=== PATIENT | male | born 1960 | race Caucasian/White ===

== ENCOUNTER 2018-09-28 19:40 | Emergency (ER) | payer OTHER ==
[~2018-09-28 19:40] MED LIST: THIAMINE 100 MG TAB PO SCH
[2018-09-28] MEDS ORDERED: DIPH,PERTUS(ACELL)TETVAC-LF 0.5 ML VIAL IM ONE (20:11)
[2018-09-28] MEDS ORDERED: LIDOCAINE 1% INJ 10MG/ML (20 ML MDV) SQ STA (20:11)
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
--- NOTE | 2018-09-28 20:56 | XR ---
EXAMINATION TYPE: XR chest 2V DATE OF EXAM: 09/28/2018 COMPARISON: NONE HISTORY: Pain TECHNIQUE: Frontal and lateral views of the chest are obtained. FINDINGS: There is no heart failure nor confluent pneumonic infiltrate. Costophrenic angles are antoni r. Bony thorax is intact. There is no pleural effusion. There is old healed fracture left clavicle. IMPRESSION: No active cardiopulmonary disease. Normal heart.
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
[2018-09-28] MEDS ORDERED: AMOXIC-POT CLAV 875-125MG 1 EACH TAB PO SCH (21:45)
[2018-09-28] MEDS ORDERED: PROPARACAINE 0.5% OPHTH DROPS 15 ML BTL LEFT EYE STA (21:55)
[2018-09-28 22:08] LABS: Basophils % (A) 1 %; Eosinophils # (A) 0.1 k/uL (0-0.7); Eosinophils % (A) 1 %; HGB 14.4 gm/dL (13.0-17.5); Lymphocytes # (A) 2.1 k/uL (1.0-4.8); Lymphocytes % (A) 33 %; MCH 32.1 pg (25.0-35.0); MCHC 32.9 g/dL (31.0-37.0); MCV 97.8 fL (80.0-100.0); Mean Platelet Volume 6.9; Monocytes # (A) 0.4 k/uL (0-1.0); Monocytes % (A) 7 %; Neutrophils # (A) 3.5 k/uL (1.3-7.7); Neutrophils % (A) 55 %; Platelet Count 211 k/uL (150-450); RBC 4.49 m/uL (4.30-5.90); RDW 12.5 % (11.5-15.5); WBC 6.3 k/uL (3.8-10.6)
[2018-09-28 22:09] LABS: Appearance,Urine Clear (Clear); Bilirubin,Urine Negative (Negative); Blood,Urine Negative (Negative); Color,Urine Light Yellow; Glucose,Urine (UA) Negative (Negative); Ketones,Urine Negative (Negative); Leukocyte Esterase,Urine Negative (Negative); Nitrite,Urine Negative (Negative); Protein,Urine Negative (Negative); Specific Gravity,Urine 1.006 (1.001-1.035); Urobilinogen,Urine <2.0 mg/dL (<2.0)
[2018-09-28 22:23] LABS: ALT 40 U/L (21-72); AST 40 U/L (17-59); Albumin 4.5 g/dL (3.5-5.0); Alkaline Phosphatase 98 U/L (38-126); Anion Gap 14 mmol/L; Blood Urea Nitrogen 10 mg/dL (9-20); Carbon Dioxide 21 mmol/L (22-30); Chloride 102 mmol/L (98-107); Glucose 85 mg/dL (74-99); Potassium 4.1 mmol/L (3.5-5.1); Sodium 137 mmol/L (137-145); Total Bilirubin 0.4 mg/dL (0.2-1.3); Total Protein 7.3 g/dL (6.3-8.2)
[2018-09-28 22:32] LABS: Alcohol 229 mg/dL
[2018-09-28] MEDS ORDERED: THIAMINE 100 MG/ML 2 ML VIAL IM STA (23:10)
[2018-09-28] MEDS ORDERED: LORazepam 2 MG/ML INJ IV PRN ×3 (23:10)
[2018-09-28] MEDS ORDERED: MORPHINE SULFATE 4 MG/ML SYRINGE IV STA (23:22)
[2018-09-29 05:56] VITALS: BP 102/56; PULSE 64; RESP 16; TEMP 98.4
== END 2018-09-29 05:56 | disposition home or self-care (01) ==
LOC: EC 19:40
DX: S02.32XA Fracture of orbital floor, left side, initial encounter for closed fracture (principal); F17.200 Nicotine dependence, unspecified, uncomplicated; S02.40FA Zygomatic fracture, left side, initial encounter for closed fracture; Y90.7 Blood alcohol level of 200-239 mg/100 ml; Z23 Encounter for immunization; V18.4XXA Pedal cycle driver injured in noncollision transport accident in traffic accident, initial encounter; Y93.55 Activity, bike riding; Y92.410 Unspecified street and highway as the place of occurrence of the external cause
CPT/HCPCS: 36415; 80053; 85025; 81003; 80320; 71046; 72125; 70450; 70480; 90715; 99285; 12011; 96374; 96372; 90471; J2270; J3411; J2001

== ENCOUNTER 2021-01-31 18:55 | Emergency (ER) | payer OTHER ==
[2021-01-31 19:13] VITALS: TEMP 98.3
[2021-01-31] MEDS ORDERED: BACITRACIN OINT 1 EACH PACKET TOPICAL ONE (19:19)
[2021-01-31] MEDS ORDERED: LIDOCAINE 1% INJ 10MG/ML (20 ML MDV) SQ ONE (19:19)
[2021-01-31] MEDS ORDERED: DIPH,PERTUS(ACELL)TETVAC-LF 0.5 ML VIAL IM ONE (19:19)
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
[2021-01-31 21:53] VITALS: BP 101/77; PULSE 72; RESP 18
== END 2021-01-31 21:53 | disposition home or self-care (01) ==
LOC: EC 18:55
DX: S01.112A Laceration without foreign body of left eyelid and periocular area, initial encounter (principal); S61.411A Laceration without foreign body of right hand, initial encounter; S60.512A Abrasion of left hand, initial encounter; F17.200 Nicotine dependence, unspecified, uncomplicated; F12.90 Cannabis use, unspecified, uncomplicated; W01.0XXA Fall on same level from slipping, tripping and stumbling without subsequent striking against object, initial encounter
CPT/HCPCS: 72125; 70450; 90715; 12011; 12001; 90471; 99284; J2001

== ENCOUNTER 2021-02-16 22:33 | Emergency (ER) | payer OTHER ==
[2021-02-17 02:23] VITALS: RESP 20
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
[2021-02-17 06:30] VITALS: BP 101/62; PULSE 67; TEMP 98.1
== END 2021-02-17 06:45 | disposition home or self-care (01) ==
LOC: EC 22:33
DX: S50.311A Abrasion of right elbow, initial encounter (principal); F10.129 Alcohol abuse with intoxication, unspecified; F17.200 Nicotine dependence, unspecified, uncomplicated; F12.90 Cannabis use, unspecified, uncomplicated; V19.9XXA Pedal cyclist (driver) (passenger) injured in unspecified traffic accident, initial encounter; Y92.524 Gas station as the place of occurrence of the external cause; Y90.9 Presence of alcohol in blood, level not specified
CPT/HCPCS: 99284

== ENCOUNTER 2022-11-27 19:47 | Inpatient (IN) | payer OTHER ==
[2022-11-27 22:04] LABS: Anisocytosis Slight; Basophils % (A) 1 %; Eosinophils # (A) 0.1 k/uL (0-0.7); Eosinophils % (A) 1 %; HCT 27.4 % (39.0-53.0); HGB 8.5 gm/dL (13.0-17.5); Hypochromasia Moderate; Lymphocytes # (A) 2.5 k/uL (1.0-4.8); Lymphocytes % (A) 35 %; MCH 21.5 pg (25.0-35.0); MCHC 31.1 g/dL (31.0-37.0); MCV 69.2 fL (80.0-100.0); Mean Platelet Volume 6.3; Microcytosis Marked; Monocytes # (A) 0.4 k/uL (0-1.0); Monocytes % (A) 6 %; Neutrophils % (A) 56 %; Platelet Count 490 k/uL (150-450); RBC 3.96 m/uL (4.30-5.90); RDW 19.3 % (11.5-15.5); WBC 7.1 k/uL (3.8-10.6)
[2022-11-27 22:15] LABS: ALT 15 U/L (4-49); AST 25 U/L (17-59); African American GFR (CKD) >90 (>60 ml/min/1.73 sqM); Albumin 2.8 g/dL (3.5-5.0); Alkaline Phosphatase 128 U/L (38-126); Anion Gap 8 mmol/L; Calcium 7.8 mg/dL (8.4-10.2); Carbon Dioxide 25 mmol/L (22-30); Chloride 99 mmol/L (98-107); Glucose 107 mg/dL (74-99); Non-African American GFR(CKD) >90 (>60 ml/min/1.73 sqM); Potassium 4.1 mmol/L (3.5-5.1); Sodium 132 mmol/L (137-145); Total Bilirubin 0.2 mg/dL (0.2-1.3)
[2022-11-27 22:16] LABS: Blood Urea Nitrogen 11 mg/dL (9-20)
[2022-11-27 22:43] LABS: Appearance,Urine Clear (Clear); Bilirubin,Urine Negative (Negative); Blood,Urine Negative (Negative); Color,Urine Yellow; Glucose,Urine (UA) Negative (Negative); Ketones,Urine Negative (Negative); Leukocyte Esterase,Urine Negative (Negative); Nitrite,Urine Negative (Negative); PH, Urine 5.5 (5.0-8.0); Protein,Urine Trace (Negative); Specific Gravity,Urine 1.016 (1.001-1.035)
--- NOTE | 2022-11-27 22:59 | XR ---
EXAMINATION TYPE: XR chest 2V DATE OF EXAM: 11/27/2022 COMPARISON: Chest x-ray September 28, 2018 HISTORY: Shortness of breath. TECHNIQUE: Frontal and lateral views of the chest are obtained. FINDINGS: There is no focal air space opacity, pleural effusion, or pneumothorax seen. The cardiac silhouette size remains within normal limits with ectatic descending aorta. Old malunion healed fract ure deformity mid to distal left clavicle redemonstrated. IMPRESSION: No acute cardiopulmonary process. No significant change from prior.
--- NOTE | 2022-11-28 02:27 | ED ---
Extremity Problem HPI - General Chief complaint: Extremity Problem,Nontraumatic Stated complaint: bilateral feet and leg swelling Time Seen by Provider: 11/27/22 22:17 Source: patient Mode of arrival: wheelchair Limitations: no limitations - History of Present Illness Initial comments: 62-year-old male presenting with chief complaint of bilateral lower extremity swelling worsening over the last week. No redness. Patient admits to discomfort in the legs. He admits to some shortness of breath, patient is currently a smoker. No chest pain. No cough, congestion, sore throat, fever, chills, nausea, vomiting, abdominal pain. - Related Data Home Medications Medication Instructions Recorded Confirmed Acetaminophen Tab [Tylenol] 325 mg PO ONCE PRN 02/17/21 02/17/21 Allergies Allergy/AdvReac Type Severity Reaction Status Date / Time No Known Allergies Allergy Verified 02/17/21 06:20 Review of Systems ROS Statement: Those systems with pertinent positive or pertinent negative responses have been documented in the HPI. ROS Other: All systems not noted in ROS Statement are negative. Past Medical History Past Medical History: No Reported History History of Any Multi-Drug Resistant Organisms: None Reported Past Surgical History: No Surgical Hx Reported Past Psychological History: No Psychological Hx Reported Smoking Status: Current every day smoker Past Alcohol Use History: Daily Past Drug Use History: Marijuana General Exam Limitations: no limitations General appearance: alert, in no apparent distress Head exam: Present: atraumatic, normocephalic, normal inspection Eye exam: Present: normal appearance, EOMI. Absent: scleral icterus, periorbital swelling Neck exam: Present: normal inspection, full ROM Respiratory exam: Present: normal lung sounds bilaterally. Absent: respiratory distress, wheezes, rales, rhonchi, stridor Cardiovascular Exam: Present: regular rate, normal rhythm, normal heart sounds. Absent: systolic murmur, diastolic murmur, rubs, gallop, clicks Extremities exam: Present: pedal edema Neurological exam: Present: alert, oriented X3, CN II-XII intact Psychiatric exam: Present: normal affect, normal mood Skin exam: Present: warm, dry, intact, normal color. Absent: rash Course Vital Signs 11/27/22 20:06 Temperature 98.2 F Pulse Rate 71 Respiratory 16 Rate Blood Pressure 107/70 O2 Sat by Pulse 100 Oximetry Medical Decision Making - Medical Decision Making Was pt. sent in by a medical professional or institution (SYDNIE Xie, BAKERY WORKER, urgent care, hospital, or jail...) When possible be specific @ -No Did you speak to anyone other than the patient for history (EMS, parent, family, police, friend...)? What history was obtained from this source @ -No Did you review nursing and triage notes (agree or disagree)? Why? @ -I reviewed and agree with nursing and triage notes Were old charts reviewed (outside hosp., previous admission, EMS record, old EKG, old radiological studies, urgent care reports/EKG's, jail records)? Report findings @ -No old charts were reviewed Differential Diagnosis (chest pain, altered mental status, abdominal pain women, abdominal pain men, vaginal bleeding, weakness, fever, dyspnea, syncope, headache, dizziness, GI bleed, back pain, seizure, CVA, palpatations, mental health, musculoskeletal)? @ -Differential includes CHF, DVT, pedal edema, this is not an all inclusive list EKG interpreted by me (3pts min.). @ -As above X-rays interpreted by me (1pt min.). @ -Chest x-ray shows no acute process CT interpreted by me (1pt min.). @ -None done U/S interpreted by me (1pt. min.). @ -None done What testing was considered but not performed or refused? (CT, X-rays, U/S, labs)? Why? @ -None What meds were considered but not given or refused? Why? @ -None Did you discuss the management of the patient with other professionals (professionals i.e. SYDNIE Xie, BAKERY WORKER, lab, RT, psych nurse, social media marketer, x ray equipment mechanic, teacher, mail officer, case operator)? Give summary @ -Discussed with Dr. Newman who accepted admission Was smoking cessation discussed for >3mins.? @ -No Was critical care preformed (if so, how long)? @ -No Were there social determinants of health that impacted care today? How? ( Homelessness, low income, unemployed, alcoholism, drug addiction, transportation, low edu. Level, literacy, decrease access to med. care, halfway, rehab)? @ -No Was there de-escalation of care discussed even if they declined (Discuss DNR or withdrawal of care, Hospice)? DNR status @ -No What co-morbidities impacted this encounter? (DM, HTN, Smoking, COPD, CAD, Cancer, CVA, ARF, Chemo, Hep., AIDS, mental health diagnosis, sleep apnea, morbid obesity)? @ -Smoking Was patient admitted / discharged? Hospital course, mention meds given and route, prescriptions, significant lab abnormalities, going to OR and other pertinent info. @ -A 62-year-old male presenting with chief complaint of lower extremity edema. 4+ pitting edema bilaterally noted on physical exam. BNP is 1470. Chest x-ray clear. Patient will be admitted for new onset CHF. Patient is agreeable with this plan. I discussed this case my attending Dr. Murphy. Undiagnosed new problem with uncertain prognosis? @ -No Drug Therapy requiring intensive monitoring for toxicity (Heparin, Nitro, Insulin, Cardizem)? @ -No Were any procedures done? @ -No Diagnosis/symptom? @ -New onset CHF Acute, or Chronic, or Acute on Chronic? @ -Acute Uncomplicated (without systemic symptoms) or Complicated (systemic symptoms)? @ -Complicated Side effects of treatment? @ -No Exacerbation, Progression, or Severe Exacerbation? @ -No Poses a threat to life or bodily function? How? (Chest pain, USA, NM, pneumonia, PE, COPD, DKA, ARF, appy, cholecystitis, CVA, Diverticulitis, Homicidal, Suicidal, threat to staff... and all critical care pts) @ -yes - Lab Data Result diagrams: 11/27/22 21:49 11/27/22 21:49 Lab Results 11/27/22 11/27/22 11/27/22 Range/Units 21:49 21:49 21:49 WBC 7.1 (3.8-10.6) k/uL RBC 3.96 L (4.30-5.90) m/uL Hgb 8.5 L (13.0-17.5) gm/dL Hct 27.4 L (39.0-53.0) % MCV 69.2 L (80.0-100.0) fL MCH 21.5 L (25.0-35.0) pg MCHC 31.1 (31.0-37.0) g/dL RDW 19.3 H (11.5-15.5) % Plt Count 490 H (150-450) k/uL MPV 6.3 Neutrophils % 56 % Lymphocytes % 35 % Monocytes % 6 % Eosinophils % 1 % Basophils % 1 % Neutrophils # 4.0 (1.3-7.7) k/uL Lymphocytes # 2.5 (1.0-4.8) k/uL Monocytes # 0.4 (0-1.0) k/uL Eosinophils # 0.1 (0-0.7) k/uL Basophils # 0.0 (0-0.2) k/uL Hypochromasia Moderate Anisocytosis Slight Microcytosis Marked Sodium 132 L (137-145) mmol/L Potassium 4.1 (3.5-5.1) mmol/L Chloride 99 (98-107) mmol/L Carbon Dioxide 25 (22-30) mmol/L Anion Gap 8 mmol/L BUN 11 (9-20) mg/dL Creatinine 0.82 (0.66-1.25) mg/dL Est GFR (CKD-EPI)AfAm >90 (>60 ml/min/1.73 sqM) Est GFR (CKD-EPI)NonAf >90 (>60 ml/min/1.73 sqM) Glucose 107 H (74-99) mg/dL Calcium 7.8 L (8.4-10.2) mg/dL Total Bilirubin 0.2 (0.2-1.3) mg/dL AST 25 (17-59) U/L ALT 15 (4-49) U/L Alkaline Phosphatase 128 H (38-126) U/L NT-Pro-B Natriuret Pep 1470 pg/mL Total Protein 6.0 L (6.3-8.2) g/dL Albumin 2.8 L (3.5-5.0) g/dL Urine Color Urine Appearance (Clear) Urine pH (5.0-8.0) Ur Specific [place] (1.001-1.035) Urine Protein (Negative) Urine Glucose (UA) (Negative) Urine Ketones (Negative) Urine Blood (Negative) Urine Nitrite (Negative) Urine Bilirubin (Negative) Urine Urobilinogen (<2.0) mg/dL Ur Leukocyte Esterase (Negative) 11/27/22 Range/Units 21:50 WBC (3.8-10.6) k/uL RBC (4.30-5.90) m/uL Hgb (13.0-17.5) gm/dL Hct (39.0-53.0) % MCV (80.0-100.0) fL MCH (25.0-35.0) pg MCHC (31.0-37.0) g/dL RDW (11.5-15.5) % Plt Count (150-450) k/uL MPV Neutrophils % % Lymphocytes % % Monocytes % % Eosinophils % % Basophils % % Neutrophils # (1.3-7.7) k/uL Lymphocytes # (1.0-4.8) k/uL Monocytes # (0-1.0) k/uL Eosinophils # (0-0.7) k/uL Basophils # (0-0.2) k/uL Hypochromasia Anisocytosis Microcytosis Sodium (137-145) mmol/L Potassium (3.5-5.1) mmol/L Chloride (98-107) mmol/L Carbon Dioxide (22-30) mmol/L Anion Gap mmol/L BUN (9-20) mg/dL Creatinine (0.66-1.25) mg/dL Est GFR (CKD-EPI)AfAm (>60 ml/min/1.73 sqM) Est GFR (CKD-EPI)NonAf (>60 ml/min/1.73 sqM) Glucose (74-99) mg/dL Calcium (8.4-10.2) mg/dL Total Bilirubin (0.2-1.3) mg/dL AST (17-59) U/L ALT (4-49) U/L Alkaline Phosphatase (38-126) U/L NT-Pro-B Natriuret Pep pg/mL Total Protein (6.3-8.2) g/dL Albumin (3.5-5.0) g/dL Urine Color Yellow Urine Appearance Clear (Clear) Urine pH 5.5 (5.0-8.0) Ur Specific [place] 1.016 (1.001-1.035) Urine Protein Trace H (Negative) Urine Glucose (UA) Negative (Negative) Urine Ketones Negative (Negative) Urine Blood Negative (Negative) Urine Nitrite Negative (Negative) Urine Bilirubin Negative (Negative) Urine Urobilinogen 2.0 (<2.0) mg/dL Ur Leukocyte Esterase Negative (Negative) Disposition Clinical Impression: CHF (congestive heart failure) Disposition: ADMITTED IP TO THIS [facility] Condition: Fair Referrals: None,Stated [Primary Care Provider] - 1-2 days Time of Disposition: 02:27
[2022-11-28] MEDS ORDERED: FUROSEMIDE 10 MG/ML 4 ML VIAL IV STA (02:48)
[2022-11-28] MEDS ORDERED: NALOXONE 0.4 MG/ML 1 ML VIAL IV PRN (04:20)
--- NOTE | 2022-11-28 07:47 | P.HPIM ---
History of Present Illness H&P Date: 11/28/22 (patient seen at 1015) Patient is a 62-year-old male with no known past medical history who presented to the emergency department with complaints of lower extremity swelling. On arr ival to the ER his vital signs were within normal limits. Laboratory analysis was remarkable for hemoglobin 8.5, hematocrit 27.4, platelets 490, sodium 132, glucose 107, calcium 7.8, alkaline phosphatase 128, total bilirubin 6, albumin 2.8. BNP was elevated at 1470. Chest x-ray showed no acute process. In the ER he was given a dose of Lasix. Arrangements were made for admission. Patient seen and examined at bedside. He reports that he has had lower external be edema for the last 1-2 weeks that has been increasing in nature. He adamantly denies any chest pain, shortness of breath, change in his chronic cough, difficulty with urination. He denies any nausea, vomiting, or diarrhea. He does state that he has been drinking 3, 20 ounce beers daily he is unsure the last day he has gone without drinking. He has never had any signs of all, withdrawn the past. He has no known heart issues. He does report that sometimes he gets inebriated from his 3 beers and has difficulty with falling. Vital signs reviewed General: nontoxic, no distress, appears at stated age Derm: warm, dry Eyes: EOMI, no lid lag, anicteric sclera, pupils equal round reactive to light ENT: Nose and ears atraumatic, no thrush, no pharyngeal erythema, poor dentition Cardiovascular: S1S2 reg, no murmur, positive posterior tibial pulse bilateral, 2+ b/l LE edema Lungs: clear to auscultation bilateral, no rhonchi, no rales, no wheeze, no accessory muscle use Abdominal: soft, nontender to palpation, no guarding, no appreciable organomegaly, normal bowel sounds Ext: no gross muscle atrophy, no contractures Neuro: CN II-XII grossly intact, light touch intact all 4 extremities, finger to nose within normal limits, Psych: Alert, oriented, appropriate affect Assessment/Plan: B/l LE edema - converns for CHF vs cirrhosis vs other - check Liver US and echo - Lasix 40 mg IVP twice daily - strict I and O daily weights - await testing prior to starting BB or JANET/ARB - Will nee BMP and MG in am with IV diuresis Hypervolemic hyponatremia - caonitnue with lasix - monitor sodium Anemia thrombocytosis - follow CBC - Check iron studis Niconitne dependency - nicoitne replacement - cessation Alcohol Dependency - CIWA with ativan - Thiamine 100 gm daily and folic acid 1 mg daily. Imaging: Chest x-ray-as reviewed by myself in 11/28/22 shows no acute process As per HPI Data Review: As per HPI The patient is admitted with an anticipated greater than 2 midnight stay for evaluation of lower extremity edema Surrogate decision-maker: CODE STATUS:full DVT prophylaxis: SCDs Anticipated discharge date: Pending Clinical Course Anticipated discharge place: Pending Clinical Course This dictation was prepared using [employer] voice recognition software. Selena claros every attempt is made to correct errors during dictation some may still exist. Past Medical History Past Medical History: No Reported History History of Any Multi-Drug Resistant Organisms: None Reported Additional Past Surgical History / Comment(s): right leg surgery for broken bone Past Psychological History: No Psychological Hx Reported Smoking Status: Current every day smoker Past Alcohol Use History: Daily Past Drug Use History: Marijuana Medications and Allergies Home Medications Medication Instructions Recorded Confirmed Type No Known Home Medications 11/28/22 11/28/22 History Allergies Allergy/AdvReac Type Severity Reaction Status Date / Time No Known Allergies Allergy Verified 11/28/22 06:33 Physical Exam Osteopathic Statement: *. No significant issues noted on an osteopathic structural exam other than those noted in the History and Physical/Consult. Vitals: Vital Signs Temp Pulse Resp BP Pulse Ox 11/28/22 06:00 62 16 124/88 96 11/28/22 03:25 68 16 116/80 100 11/27/22 20:06 98.2 F 71 16 107/70 100 Intake and Output 11/27/22 11/28/22 11/28/22 22:59 06:59 14:59 Other: Weight 72.575 kg Results CBC & Chem 7: 11/28/22 07:56 11/28/22 07:56 Labs: Abnormal Lab Results - Last 24 Hours (Table) 11/27/22 11/27/22 11/27/22 Range/Units 21:49 21:49 21:50 RBC 3.96 L (4.30-5.90) m/uL Hgb 8.5 L (13.0-17.5) gm/dL Hct 27.4 L (39.0-53.0) % MCV 69.2 L (80.0-100.0) fL MCH 21.5 L (25.0-35.0) pg RDW 19.3 H (11.5-15.5) % Plt Count 490 H (150-450) k/uL Sodium 132 L (137-145) mmol/L Glucose 107 H (74-99) mg/dL Calcium 7.8 L (8.4-10.2) mg/dL Alkaline Phosphatase 128 H (38-126) U/L Total Protein 6.0 L (6.3-8.2) g/dL Albumin 2.8 L (3.5-5.0) g/dL Urine Protein Trace H (Negative)
[2022-11-28 08:20] LABS: Anisocytosis Slight; HCT 27.6 % (39.0-53.0); HGB 8.5 gm/dL (13.0-17.5); Hypochromasia Moderate; MCH 21.6 pg (25.0-35.0); MCHC 30.7 g/dL (31.0-37.0); MCV 70.3 fL (80.0-100.0); Mean Platelet Volume 6.5; Microcytosis Marked; Platelet Count 469 k/uL (150-450); RBC 3.92 m/uL (4.30-5.90); RDW 19.3 % (11.5-15.5); WBC 7.5 k/uL (3.8-10.6)
[2022-11-28] MEDS: FUROSEMIDE 10 MG/ML 4 ML VIAL IV SCH ×2 (08:26→20:51)
[2022-11-28 08:43] LABS: African American GFR (CKD) >90 (>60 ml/min/1.73 sqM); Anion Gap 3 mmol/L; Blood Urea Nitrogen 14 mg/dL (9-20); Calcium 7.3 mg/dL (8.4-10.2); Carbon Dioxide 32 mmol/L (22-30); Chloride 96 mmol/L (98-107); Glucose 89 mg/dL (74-99); Magnesium 2.2 mg/dL (1.6-2.3); Non-African American GFR(CKD) >90 (>60 ml/min/1.73 sqM); Sodium 131 mmol/L (137-145)
[2022-11-28] MEDS ORDERED: LORazepam 2 MG/ML INJ IV PRN ×3 (10:04)
[2022-11-28] MEDS ORDERED: THIAMINE 100 MG/ML 2 ML VIAL IM STA (10:04)
--- NOTE | 2022-11-28 10:14 | CONS ---
CONSULTATION CHIEF COMPLAINT: New onset congestive heart failure. HISTORY OF PRESENT ILLNESS: Franci is a 62-year-old gentleman with no significant past medical history, who presented to hospital with bilateral leg edema that has been getting progressively worse over the last several weeks. He denies chest pain or difficulty in breathing. He is anemic with a hemoglobin of 8.5. He is hypoalbuminemic at 2.8 and BNP is elevated. His EKG shows sinus rhythm. Chest x-ray does not reveal any pulmonary congestion. PAST MEDICAL HISTORY: Negative for hypertension, diabetes, dyslipidemia. MEDICATIONS: None. ALLERGIES: None. FAMILY HISTORY: Negative for premature coronary artery disease. SOCIAL HISTORY: Negative for smoking, EtOH abuse, or drug abuse. REVIEW OF SYSTEMS: HEENT: Unremarkable. CARDIAC: As described above. RESPIRATORY: Negative. GI: Negative. GENITOURINARY: Negative. ALLERGY: Negative. MUSCULOSKELETAL: Negative for arthritis. PSYCHOSOCIAL: Negative. DERM: Negative. CONSTITUTIONAL: Negative. ONCOLOGICAL: Negative. INSTRUCTIONAL SUPERVISOR: Negative. Rest of the system review is not relevant. PHYSICAL EXAMINATION: VITAL SIGNS: Afebrile. Heart rate is 60 beats per minute, blood pressure is 124/88, respiratory rate is 18, O2 saturation is 96% on room air. NECK: There is no jugular venous distention. Carotid upstroke is normal. There is no bruit. CHEST: Reveals good air entry bilaterally. HEART: Reveals first and second heart sounds. No gallop. No murmur. No rub. ABDOMEN: Soft, nontender. EXTREMITIES: Did not reveal any edema. Peripheral pulses are felt. LABORATORY DATA: Labs showed that the hemoglobin is 8.5. Potassium is 4, creatinine 0.8. ASSESSMENT: 1. Bilateral leg edema, probably related to new onset congestive heart failure. 2. History of ETOH abuse. PLAN: I am going to obtain a 2D echo to evaluate the LV function. The leg edema could either be due to new onset heart failure or due to a combination of underlying problems including low albumin, anemia, ETOH abuse, and possible underlying liver disease. I will leave him on IV Lasix for another day and further optimize the medications tomorrow. MMODL / IJN: [id number] /
--- NOTE | 2022-11-28 11:34 | CA ---
Transthoracic Echo Report Name: Franci Erickson Age: 62 Gender: M : 1960 Exam Date: 11/28/2022 09:18 Exam Location: [place] [facility] Ht (in): 72 Wt (lb): 160 Ordering Physician: Lesa Goncalves DO Attending/Referring Phys: [id number], Ivanna Multimedia Manager [facility] Procedure CPT: Indications: Heart failure Cardiac Hx: Technical Quality: Fair Contrast 1: Total Dose (mL): Contrast 2: Total Dose (mL): MEASUREMENTS (Male / Female) Normal Values 2D ECHO LV Diastolic Diameter PLAX 4.0 cm 4.2 - 5.9 / 3.9 - 5.3 cm LV Systolic Diameter PLAX 2.6 cm IVS Diastolic Thickness 0.9 cm 0.6 - 1.0 / 0.6 - 0.9 cm LVPW Diastolic Thickness 0.9 cm 0.6 - 1.0 / 0.6 - 0.9 cm LV Relative Wall Thickness 0.4 M-MODE Aortic Root Diameter MM 3.8 cm LA Systolic Diameter MM 3.4 cm LA Ao Ratio MM 0.9 AV Cusp Separation MM 2.3 cm DOPPLER AV Peak Velocity 172.8 cm/s AV Peak Gradient 11.9 mmHg AV Mean Velocity 111.1 cm/s AV Mean Gradient 5.8 mmHg AV Velocity Time Integral 28.8 cm LVOT Peak Velocity 168.0 cm/s LVOT Peak Gradient 11.3 mmHg LVOT Velocity Time Integral 31.5 cm MR Peak Velocity 517.6 cm/s MR Peak Gradient 107.2 mmHg Mitral E Point Velocity 70.9 cm/s Mitral A Point Velocity 62.4 cm/s Mitral E to A Ratio 1.1 MV Deceleration Time 314.3 ms LV E' Lateral Velocity 13.2 cm/s Mitral E to LV E' Lateral Ratio 5.4 LV E' Septal Velocity 7.9 cm/s Mitral E to LV E' Septal Ratio 9.0 Right Atrial Pressure 3.0 mmHg FINDINGS Left Ventricle Normal Left ventricular size, wall thickness, systolic function with no obvious regional wall motion abnormalities. Left ventricular ejection fraction is estimated at 55-60%. Right Ventricle Mild right ventricular dilatation. Right Atrium Mild right atrial dilatation. Left Atrium Normal left atrial size. Mitral Valve Structurally normal mitral valve. Moderate mitral regurgitation. Aortic Valve Trileaflet aortic valve. No aortic valve stenosis or regurgitation. Tricuspid Valve Structurally normal tricuspid valve. No tricuspid regurgitation. Pulmonic Valve Pulmonic valve not well visualized. Pericardium Small pericardial effusion. Aorta Mild aortic dilatation at the level of the sinuses of valsalva (root). CONCLUSIONS Normal LV size and systolic function mild concentric LVH noted. Moderate mitral regurgitation noted eccentric. Mild enlargement of aortic root. No significant pulmonary hypertension. Small pericardial effusion Previewed by: Dr. Willian Obregon MD (Electronically Signed) Final Date: 28 November 2022 11:33
[2022-11-28 11:37] LABS: % Iron Saturation 8.66 (15.00-50.00); Ferritin 43.8 ng/mL (22.0-322.0)
--- NOTE | 2022-11-28 14:44 | US ---
EXAMINATION TYPE: US liver DATE OF EXAM: 11/28/2022 COMPARISON: NONE CLINICAL INDICATION: Male, 62 years old with history of cirrhosis; cirrhosis TECHNIQUE: Multiple sonographic images of the right upper quadrant are obtained. FINDINGS: EXAM MEASUREMENTS: Liver Length: 18.2 cm Gallbladder Wall: 0.3 cm CBD: 0.4 cm Right Kidney: 11.2 x 4.4 x 5.1 cm Pancreas: Tail obscured by overlying bowel gas Liver: appears wnl Gallbladder: possible small amount of sludge Evidence for sonographic Amador's sign: no CBD: wnl Right Kidney: no evidence of hydronephrosis The visualized portions of the pancreas unremarkable. The tail is obscured by overlying bowel gas. Li justine appears within normal limits without focal lesion. No surface nodularity identified. Gallbladder demonstrates trace amount of sludge without evidence of shadowing calculi, wall thickening, or perich olecystic fluid. Per director advanced, negative sonographic Amador sign. Common bile duct is within normal limits. Right kidney is unremarkable without evidence of hydronephrosis, shadowing calculi, or solid mass. IMPRESSION: 1. Gallbladder sludge without evidence for acute cholecystitis. 2. Normal ultrasound appearance of the liver without focal lesion.
[2022-11-28] MEDS: NICOTINE 21MG/24HR PATCH TRANSDERM SCH (17:54)
[2022-11-28] MEDS ORDERED: MELATONIN 3 MG TABLET PO PRN (17:59)
[2022-11-28] MEDS: ACETAMINOPHEN TAB 325 MG TAB PO PRN (18:19)
[2022-11-28] MEDS: IOPAMIDOL CONTRAST (ORAL USE) VIAL PO PRN ×2 (20:51→21:58)
--- NOTE | 2022-11-28 22:45 | CT ---
EXAMINATION TYPE: CT ChestAbdPelvis w con DATE OF EXAM: 11/28/2022 COMPARISON: none HISTORY: LE edema, concern for pelvic outlet obstruction CT DLP: 768.4 mGycm CONTRAST: CT scan of the chest, abdomen and pelvis is performed with Oral Contrast and with IV Contrast, patien t injected with 100 mL of Isovue 300. CT Chest: LUNGS: The lungs are clear and free of infiltrate or atelectasis. No pulmonary nodule or mass is det ected. No pleural effusion or CT evidence of interstitial lung disease. MEDIASTINUM: Thoracic aorta is of normal caliber. The heart is not enlarged. No evidence for media stinal mass or adenopathy. HILAR STRUCTURES: No evidence for mass. No hilar adenopathy is appreciated. OTHER: No significant abnormality. CONTRAST CT ABDOMEN AND PELVIS FINDINGS: LIVER/GB: No calcified gallstones. No space occupying hepatic lesion. Biliary tree is of normal ca liber. PANCREAS: No inflammation. No distinct mass. SPLEEN: No splenic enlargement. No lesion seen. ADRENALS: No nodule. No thickening. KIDNEYS/BLADDER: No hydronephrosis. No nephrolithiasis. No distinct renal mass. There is urinary b ladder wall thickening which may reflect cystitis. BOWEL: There is a large cecal mass noted extending into the ascending colon. The mass measures at taina st 10 cm in length. There is pericolonic stranding as well as a adenopathy measuring up to 1.2 cm. Sm all bowel is of normal caliber. Moderate fecal stasis throughout the remainder of the colon. GENITAL ORGANS: No gross abnormality. LYMPH NODES: No greater than 1cm abdominal or pelvic lymph nodes are appreciated. AORTA: No significant abnormality. OSSEOUS STRUCTURES: Degenerative changes of the lower lumbar spine. Grade 1 retrolisthesis L4 and L5 of grade 1 anterolisthesis L5 on S1 OTHER: No significant additional abnormality is seen. IMPRESSION: 1. Large cecal and ascending colonic mass felt to reflect malignancy until proven otherwise. There is surrounding stranding and fluid as well as adenopathy indicating regional spread. 2. No definite evidence for metastatic disease to the liver or the chest. 3. Urinary bladder cystitis
[2022-11-29 07:58] LABS: Anisocytosis Slight; HCT 26.6 % (39.0-53.0); HGB 8.2 gm/dL (13.0-17.5); Hypochromasia Moderate; MCH 21.8 pg (25.0-35.0); MCHC 30.9 g/dL (31.0-37.0); MCV 70.7 fL (80.0-100.0); Mean Platelet Volume 6.6; Microcytosis Marked; Platelet Count 481 k/uL (150-450); RBC 3.76 m/uL (4.30-5.90); RDW 19.4 % (11.5-15.5); WBC 8.3 k/uL (3.8-10.6)
[2022-11-29 08:16] LABS: African American GFR (CKD) >90 (>60 ml/min/1.73 sqM); Anion Gap 4 mmol/L; Blood Urea Nitrogen 12 mg/dL (9-20); Calcium 7.6 mg/dL (8.4-10.2); Carbon Dioxide 30 mmol/L (22-30); Chloride 94 mmol/L (98-107); Glucose 91 mg/dL (74-99); Non-African American GFR(CKD) >90 (>60 ml/min/1.73 sqM); Potassium 4.3 mmol/L (3.5-5.1); Sodium 128 mmol/L (137-145)
[2022-11-29] MEDS: FUROSEMIDE 10 MG/ML 4 ML VIAL IV SCH (09:53)
[2022-11-29] MEDS: IBUPROFEN 400 MG TAB PO PRN (10:04)
[2022-11-29] MEDS: FOLIC ACID 1 MG TAB PO SCH (10:04)
[2022-11-29] MEDS: ONDANSETRON 4 MG/2 ML VIAL IVP PRN (10:04)
[2022-11-29] MEDS: THIAMINE 100 MG TAB PO SCH (10:05)
[2022-11-29] MEDS: NICOTINE 21MG/24HR PATCH TRANSDERM SCH (10:05)
[2022-11-29] MEDS ORDERED: PEG 3350 (236 GM/BTL) + LYTES 4,000 ML BOTTLE PO ONE ×2 (11:00→17:33)
[2022-11-29] MEDS ORDERED: LACTULOSE 20 GM/30 ML CUP PO ONE (11:15)
--- NOTE | 2022-11-29 11:44 | P.PN ---
Subjective Progress Note Date: 11/29/22 HISTORY OF PRESENT ILLNESS: this is a 62-year-old male who presented to the hospital yesterday secondary to lower extremity edema. Patient was placed on IV Lasix. Patient examined this morning at the bedside. Patient denies chest pain or pressure. He denies shortness of breath. His lower extremity edema has resolved. Echocardiogram completed revealing ejection fraction 55-60%. Patient is hypotensive this morning and was started on IV fluids per primary medicine. Patient underwent CT chest abdomen and pelvis revealing large cecal and ascending colonic mass felt to reflect malignancy. PHYSICAL EXAM: VITAL SIGNS: Reviewed. GENERAL: Well-developed in no acute distress. NECK: Supple. No JVD or thyromegaly LUNGS: Respirations even and unlabored. Lungs essentially clear to auscultation bilaterally. HEART: Regular rate and rhythm. S1 and S2 heard. EXTREMITIES: Normal range of motion. No clubbing or cyanosis. Peripheral pulses intact. No lower extremity edema ASSESSMENT: Lower extremity edema, may be secondary to alcohol use and/or low albumin levels, CHF less likely History of alcohol abuse Large cecal and ascending colonic mass Hypotension PLAN: Discontinue IV lasix Patient started on IV fluids per primary medicine General surgery has been consulted and patient is scheduled for right colectomy tomorrow with Dr. Beck Further recommendations pending patient course Nurse practitioner note has been reviewed by physician. Signing provider agrees with the documented findings, assessment, and plan of care. Objective - Vital Signs Vital signs: Vital Signs Temp 99.1 F 11/29/22 08:20 Pulse 74 11/29/22 08:20 Resp 16 11/29/22 08:20 BP 95/64 11/29/22 10:07 Pulse Ox 99 11/29/22 08:20 FiO2 Intake & Output 11/28/22 11/29/22 11/29/22 18:59 06:59 18:59 Intake Total 180 180 Output Total 900 1500 Balance -720 -1500 180 Weight 72.575 kg 59.2 kg Intake: Oral 180 180 Output: Urine 900 1500 Other: Voiding Method Toilet # Voids 1 5 - Labs CBC & Chem 7: 11/29/22 07:31 11/29/22 07:31 Labs: Abnormal Lab Results - Last 24 Hours (Table) 11/29/22 11/29/22 Range/Units 07:31 07:31 RBC 3.76 L (4.30-5.90) m/uL Hgb 8.2 L (13.0-17.5) gm/dL Hct 26.6 L (39.0-53.0) % MCV 70.7 L (80.0-100.0) fL MCH 21.8 L (25.0-35.0) pg MCHC 30.9 L (31.0-37.0) g/dL RDW 19.4 H (11.5-15.5) % Plt Count 481 H (150-450) k/uL Sodium 128 L (137-145) mmol/L Chloride 94 L (98-107) mmol/L Calcium 7.6 L (8.4-10.2) mg/dL
--- NOTE | 2022-11-29 13:08 | P.GSCN ---
History of Present Illness Consult date: 11/29/22 History of present illness: CHIEF COMPLAINT: Bilateral lower extremity swelling HISTORY OF PRESENT ILLNESS: This is a 62-year-old male who presented to the hospital for complaints of bilateral lower extremity swelling. There initially concerns for possible CHF exacerbation and was started on IV Lasix. He has been seen by cardiology. He's had decrease lower extremity swelling and IV Lasix was discontinued. He did become hypotensive and has been restarted on IV fluids. Surgical consult has been placed due to abnormality noted on CAT scan with large cecal and ascending colon mass felt to reflect malignancy. Oncology is also following. Patient does report pain across the middle of the abdomen occasionally that has been ongoing for a while. He reports after passing flatus the pain is better. He denies any nausea or vomiting. He denies any blood in the stools or melanotic stools. He does report that his stools appear to float which is new. He denies any weight loss. Denies any family history of colon cancer. Patient is a smoker and drinks alcohol daily. He is also anemic with a hemoglobin of 8.2. PAST MEDICAL HISTORY: none PAST SURGICAL HISTORY: right leg surgery for broken bone MEDICATIONS: See below ALLERGIES: See below SOCIAL HISTORY: No illicit drug use. Daily EtOH use, nicotine dependence REVIEW OF SYSTEMS: CONSTITUTIONAL: Denies fever or chills. HEENT: Denies blurred vision, vision changes, or eye pain. Denies hemoptysis CARDIOVASCULAR: Denies chest pain or pressure. RESPIRATORY: No shortness of breath. GASTROINTESTINAL: See HPI for pertinent findings HEMATOLOGIC: Denies bleeding disorders. GENITOURINARY: Denies any blood in urine or increased urinary frequency. SKIN: Denies pruitis. Denies rash. PHYSICAL EXAM: VITAL SIGNS: Reviewed GENERAL: Well-developed in no acute distress. HEENT: No sclera icterus. Extraocular movements grossly intact. Moist buccal mucosa. Head is atraumatic, normocephalic. No nasal drainage. ABDOMEN: Soft. Nondistended. Tenderness with palpation of the right side of the abdomen NEUROLOGIC: Alert and oriented. Cranial nerves II through XII grossly intact. LABORATORY DATA: WBC is 8.3 Hgb 8.2 platelets 481 Sodium 128 potassium 4.3 creatinine 0.70 Total iron is low at 20 AST 25 ALT 15 alk phos 128 Troponin negative Albumin 2.8 Urinalysis negative for infection IMAGING: Computed tomography scan chest abdomen and pelvis reveals a large cecal and ascending colonic mass felt to reflect malignancy until proven otherwise. There is surrounding stranding and fluid as well as adenopathy indicating regional spread. No definite evidence for metastatic disease to the liver or the chest. Urinary bladder cystitis. Echo with EF 55-60%. Moderate mitral regurgitation. No significant Pulmonary hypertension. Small pericardial effusion. Liver ultrasound with gallbladder sludge without evidence for acute cholecystitis. Normal ultrasound appearance of the liver without focal lesion Chest x-ray no acute cardiopulmonary process. No significant change from prior. ASSESSMENT: 1. Large cecal and ascending colonic mass felt to reflect malignancy until proven otherwise noted on computed tomography scan 2. Bilateral lower extremity edema. Evaluated by cardiology. Currently off lasix 3. History of daily alcohol use PLAN: -Patient scheduled for right colectomy tomorrow, 11/30/[address] Beck -Nothing by mouth after midnight -Continue supportive care -Follow up on CEA level Thank you for this consultation Physician Diagnostic Imaging Manager note has been reviewed by physician. Signing provider agrees with the documented findings, assessment, and plan of care. Past Medical History Past Medical History: No Reported History History of Any Multi-Drug Resistant Organisms: None Reported Past Surgical History: Orthopedic Surgery Additional Past Surgical History / Comment(s): right leg surgery for broken bone Past Anesthesia/Blood Transfusion Reactions: No Reported Reaction Past Psychological History: No Psychological Hx Reported Smoking Status: Current every day smoker Past Alcohol Use History: Daily Past Drug Use History: Marijuana - Past Family History Father Family Medical History: Cancer, Chest Pain / Angina, Hyperlipidemia, Hypertension, Pneumonia Additional Family Medical History / Comment(s): lymphoma Medications and Allergies Home Medications Medication Instructions Recorded Confirmed Type No Known Home Medications 11/28/22 11/28/22 History Allergies Allergy/AdvReac Type Severity Reaction Status Date / Time No Known Allergies Allergy Verified 11/28/22 06:33 Surgical - Exam Vital Signs Temp Pulse Resp BP Pulse Ox 98.2 F 71 16 107/70 100 11/27/22 20:06 11/27/22 20:06 11/27/22 20:06 11/27/22 20:06 11/27/22 20:06 Results - Labs 11/29/22 07:31 11/29/22 07:31 Abnormal Lab Results - Last 24 Hours (Table) 11/28/22 11/29/2211/29/23 Range/Units 07:56 07:31 07:31 RBC 3.76 L (4.30-5.90) m/uL Hgb 8.2 L (13.0-17.5) gm/dL Hct 26.6 L (39.0-53.0) % MCV 70.7 L (80.0-100.0) fL MCH 21.8 L (25.0-35.0) pg MCHC 30.9 L (31.0-37.0) g/dL RDW 19.4 H (11.5-15.5) % Plt Count 481 H (150-450) k/uL Sodium 128 L (137-145) mmol/L Chloride 94 L (98-107) mmol/L Calcium 7.6 L (8.4-10.2) mg/dL Iron 20 L (65-175) UG/DL % Saturation 8.66 L (15.00-50.00) Transferrin 165.0 L (204.0-354.0) mg/dL Diabetes panel 11/29/22 Range/Units 07:31 Sodium 128 L (137-145) mmol/L Potassium 4.3 (3.5-5.1) mmol/L Chloride 94 L (98-107) mmol/L Carbon Dioxide 30 (22-30) mmol/L BUN 12 (9-20) mg/dL Creatinine 0.70 (0.66-1.25) mg/dL Glucose 91 (74-99) mg/dL Calcium 7.6 L (8.4-10.2) mg/dL Calcium panel 11/29/22 Range/Units 07:31 Calcium 7.6 L (8.4-10.2) mg/dL Pituitary panel 11/29/22 Range/Units 07:31 Sodium 128 L (137-145) mmol/L Potassium 4.3 (3.5-5.1) mmol/L Chloride 94 L (98-107) mmol/L Carbon Dioxide 30 (22-30) mmol/L BUN 12 (9-20) mg/dL Creatinine 0.70 (0.66-1.25) mg/dL Glucose 91 (74-99) mg/dL Calcium 7.6 L (8.4-10.2) mg/dL Adrenal panel 11/29/22 Range/Units 07:31 Sodium 128 L (137-145) mmol/L Potassium 4.3 (3.5-5.1) mmol/L Chloride 94 L (98-107) mmol/L Carbon Dioxide 30 (22-30) mmol/L BUN 12 (9-20) mg/dL Creatinine 0.70 (0.66-1.25) mg/dL Glucose 91 (74-99) mg/dL Calcium 7.6 L (8.4-10.2) mg/dL Assessment and Plan Plan: The patient's CAT scan was reviewed. The patient has a near obstructing right colon mass. The patient will undergo right colectomy tomorrow.
[2022-11-29] MEDS: SODIUM CHLORIDE 0.9% 1,000 ML IV SCH (13:24)
[2022-11-29] MEDS: SODIUM FERRIC GLUCONAT-SUCROSE 125 MG in SODIUM CHLORIDE 0.9% 100 ML IVPB SCH (13:24)
--- NOTE | 2022-11-29 16:45 | P.PN ---
Subjective Progress Note Date: 11/29/22 (delayed charting seen at 1130) Patient is a 62-year-old male with no known past medical history who presented to the emergency department with complaints of lower extremity swelling. On arrival to the ER his vital signs were within normal limits. Laboratory analysis was remarkable for hemoglobin 8.5, hematocrit 27.4, platelets 490, sodium 132, glucose 107, calcium 7.8, alkaline phosphatase 128, total bilirubin 6, albumin 2.8. BNP was elevated at 1470. Chest x-ray showed no acute process. In the ER he was given a dose of Lasix. Arrangements were made for admission. He was seen by cardiology and underwent echocardiogram which showed preserved systolic function. Liver ultrasound was completed with no signs of cirrhosis but did show gallbladder sludge. Patient subsequently underwent CT chest abdomen pelvis which showed cecal mass with mass in the ascending colon and lym phadenopathy. General surgery consulted. Patient seen and examined at bedside. He has no complaints at this time. We discussed the findings of his CT in detail including the large mass was likely m alignant and will need biopsy/definitive tissue diagnosis. We did discuss that his echocardiogram and liver ultrasounds are rather unremarkable. Vital signs reviewed General: nontoxic, no distress, appears at stated age Cardiovascular: S1S2 reg, no murmur, positive posterior tibial pulse bilateral, Lungs: CTA bilateral, no rhonchi, no rales , no accessory muscle use Abdominal: soft, nontender to palpation, no guarding, no appreciable organomegaly Ext: no gross muscle atrophy, no edema b/l lower extremities, no contractures Neuro: CN II-XI grossly intact, no focal neuro deficits Psych: Alert, oriented, appropriate affect Assessment/plan: Large Cecal and ascending colonic mass -Case discussed with Dr. Beck Plan will be for right-sided colectomy tomorrow. We discussed that patient have iron deficiency anemia and a hemoglobin of 8.2. He does suggest one unit of packed red blood cells preoperatively. -Case discussed with cardiology nurse practitioner and patient should be able to proceed with surgery, no concern for cardiac etiology of lower extremity edema. -Oncology consulted. Consultation reviewed. IV iron ordered. Hyponatremia Hypotension -Agree with cardiology's discontinuation of Lasix. Start normal saline at 75 mL per hour -Follow blood pressures - follow BMP B/l LE edema, due to hypoalbuminemia -Likely from diuresis -Suspect that edema is due to poor nutritional status. - Echo with preserved EF, Liver US without cirrhosis - stop IV lasix Anemia, Iron deficiency thrombocytosis - follow CBC - Iv Iron X 3 doses Nicotine dependency - nicotine replacement - cessation Alcohol Dependency - CIWA with ativan - Thiamine 100 gm daily and folic acid 1 mg daily. Imaging: CT chest abdomen pelvis: Large cecal and ascending colonic mass felt to reflect malignancy until proven otherwise with surrounding stranding and fluid as well as adenopathy indicating regional spread no definitive evidence of metastatic disease to the liver or to the chest, urinary bladder cystitis Echocardiogram: Ejection fraction 55-60%, mild right ventricular dilatation, small pericardial effusion Data Review: Vitals reviewed from this morning temperature 99.1, pulse 74, respirations 16, blood pressure 85/56, O2 sat 99% on room air Labs reviewed and remarkable for hemoglobin 8.2, platelets 481, sodium 128, CEA 29.8 DVT prophylaxis: Heparin Anticipated discharge date: Pending Clinical Course Anticipated discharge place: Pending Clinical Course This dictation was prepared using [employer] voice recognition software. Though every attempt is made to correct errors during dictation some may still exist. Objective - Vital Signs Vital signs: Vital Signs Temp 98.2 F 11/29/22 15:34 Pulse 66 11/29/22 15:34 Resp 18 11/29/22 15:34 BP 98/64 11/29/22 15:34 Pulse Ox 100 11/29/22 15:34 FiO2 Intake & Output 11/28/22 11/29/22 11/29/22 18:59 06:59 18:59 Intake Total 180 418 Output Total 900 1500 Balance -720 -1500 418 Weight 72.575 kg 59.2 kg 59.2 kg Intake: Oral 180 418 Output: Urine 900 1500 Other: Voiding Method Toilet Toilet # Voids 1 5 - Labs CBC & Chem 7: 11/29/22 07:31 11/29/22 07:31 Labs: Abnormal Lab Results - Last 24 Hours (Table) 11/29/22 11/29/22 Range/Units 07:31 07:31 RBC 3.76 L (4.30-5.90) m/uL Hgb 8.2 L (13.0-17.5) gm/dL Hct 26.6 L (39.0-53.0) % MCV 70.7 L (80.0-100.0) fL MCH 21.8 L (25.0-35.0) pg MCHC 30.9 L (31.0-37.0) g/dL RDW 19.4 H (11.5-15.5) % Plt Count 481 H (150-450) k/uL Sodium 128 L (137-145) mmol/L Chloride 94 L (98-107) mmol/L Calcium 7.6 L (8.4-10.2) mg/dL
--- NOTE | 2022-11-29 17:31 | P.CONS ---
History of Present Illness - Reason for Consult Consult date: 11/29/22 Cecal mass, LAD Requesting physician: Lesa Goncalves - Chief Complaint Bilateral lower extremity swelling - History of Present Illness Mr Erickson is a 62-year-old male patient we have been asked to see because of incidental findings of a cecal/colon mass as well as abdominal lymphadenopathy. Patient was admitted for swelling of the bilateral lower extremities, He has been seen and assessed by cardiology. Surgery has been consulted regarding the cecal/colon mass. Patient reports about a 6 pound weight loss recently, he constantly has nausea, denies ever vomiting, no abdominal pain, distention, cramping, changes in stool caliber, color or consistency, he did note that more recently his stool floats. He is never had a colonoscopy. No family history of colon cancer, father with lymphoma. Patient's sister states that he consumes ETOH daily. Microcytic, hypochromic anemia with a hemoglobin of 8.5, MCV 69.2, MCH 21.5. Platelets elevated at 490. Iron saturation 8.66, ferritin 43. CT CAP impression large cecal and ascending colonic mass, surrounding stranding and fluid as well as adenopathy, no evidence of metastatic disease otherwise. Liver MRI showing gallbladder sludge without evidence for acute cholecystitis, normal appearance to the liver, no focal lesion. Echo LVEF 55-60%. Review of Systems 10 point review of systems is negative except as stated in HPI Past Medical History Past Medical History: No Reported History History of Any Multi-Drug Resistant Organisms: None Reported Past Surgical History: Orthopedic Surgery Additional Past Surgical History / Comment(s): right leg surgery for broken bone Past Anesthesia/Blood Transfusion Reactions: No Reported Reaction Past Psychological History: No Psychological Hx Reported Smoking Status: Current every day smoker Past Alcohol Use History: Daily Past Drug Use History: Marijuana - Past Family History Father Family Medical History: Cancer, Chest Pain / Angina, Hyperlipidemia, Hypertension, Pneumonia Additional Family Medical History / Comment(s): lymphoma Medications and Allergies Home Medications Medication Instructions Recorded Confirmed Type No Known Home Medications 11/28/22 11/28/22 History Allergies Allergy/AdvReac Type Severity Reaction Status Date / Time No Known Allergies Allergy Verified 11/28/22 06:33 Physical Exam Vitals: Vital Signs Temp Pulse Resp BP Pulse Ox 11/29/22 12:04 98.0 F 74 16 89/61 100 11/29/22 10:07 95/64 11/29/22 08:20 99.1 F 74 16 85/56 99 11/29/22 04:00 97.9 F 67 19 106/65 100 11/29/22 00:00 98.0 F 62 18 110/70 99 11/28/22 20:00 98.2 F 68 19 104/68 100 11/28/22 16:20 97.8 F 63 16 101/64 100 Intake and Output 11/28/22 11/29/22 11/29/22 22:59 06:59 14:59 Intake Total 180 418 Output Total 1500 Balance 180 -1500 418 Intake: Oral 180 418 Output: Urine 1500 Other: Voiding Method Toilet Toilet # Voids 1 5 Weight 72.575 kg 59.2 kg 59.2 kg - Constitutional General appearance: cooperative, no acute distress, thin - EENT Eyes: anicteric sclerae, EOMI ENT: hearing grossly normal - Neck Neck: no lymphadenopathy - Respiratory Respirations even and unlabored at rest Respiratory: bilateral: diminished - Cardiovascular Rhythm: regular Heart sounds: normal: S1, S2 Abnormal Heart Sounds: no systolic murmur, no diastolic murmur, no rub, no S3 Gallop, no S4 Gallop, no click, no other foot Peripheral Edema: bilateral: Trace - Gastrointestinal Patient was eating lunch, I did not palpate his abdomen General gastrointestinal: normal bowel sounds, soft - Neurologic Neurologic: CNII-XII intact (Grossly) - Musculoskeletal Musculoskeletal: strength equal bilaterally - Psychiatric Psychiatric: A&O x's 3, appropriate affect, intact judgment & insight Results CBC & Chem 7: 11/29/22 07:31 11/29/22 07:31 Labs: Abnormal Lab Results - Last 24 Hours (Table) 11/29/22 11/29/22 Range/Units 07:31 07:31 RBC 3.76 L (4.30-5.90) m/uL Hgb 8.2 L (13.0-17.5) gm/dL Hct 26.6 L (39.0-53.0) % MCV 70.7 L (80.0-100.0) fL MCH 21.8 L (25.0-35.0) pg MCHC 30.9 L (31.0-37.0) g/dL RDW 19.4 H (11.5-15.5) % Plt Count 481 H (150-450) k/uL Sodium 128 L (137-145) mmol/L Chloride 94 L (98-107) mmol/L Calcium 7.6 L (8.4-10.2) mg/dL Comments: US of the liver-report reviewed CT scan - abdomen: report reviewed CT scan - chest: report reviewed CT scan - pelvis: report reviewed Assessment and Plan (1) Colonic mass Current Visit: Yes Status: Acute Priority: High Code(s): K63.89 - OTHER SPECIFIED DISEASES OF INTESTINE SNOMED Code(s): 800020568 (2) Microcytic hypochromic anemia Current Visit: Yes Status: Acute Priority: High Code(s): D50.9 - IRON DEFICIENCY ANEMIA, UNSPECIFIED SNOMED Code(s): 77732812 Plan: Colon mass -Imaging suspicious for at least local regional malignancy -Pt reporting recent, unintentional wt loss -Discussed with patient and sister at the bedside need for biopsy, they are agreeable -Patient has been seen by General Surgery, plans for colonoscopy, Path pending -CEA ordered Microcytic, hypochromic anemia -Likely multifactorial including losses from this suspicious colon mass, poor diet secondary to EtOH -CBC, iron studies reviewed -Parenteral iron ordered -Hemoglobin 8.2 today, no need for transfusion. Transfuse for hemoglobin less than 7
[2022-11-29] MEDS ORDERED: ONDANSETRON 4 MG/2 ML VIAL IVP ONE (19:53)
[2022-11-29] MEDS ORDERED: DEXAMETHASONE SOD PHOSPHATE 4 MG/ML 1 ML VIAL IV ONE (19:53)
[2022-11-29] MEDS ORDERED: LIDOCAINE 1% (10MG/ML) FOR IV START INTRADERMA PRN (19:53)
[2022-11-30] MEDS: SODIUM CHLORIDE 0.9% 1,000 ML IV SCH ×3 (05:48→11:24)
[2022-11-30] MEDS ORDERED: HYDROmorphone 0.5 MG/0.5 ML SYRINGE IVP PRN (07:00)
--- NOTE | 2022-11-30 07:34 | P.PN ---
Progress Note - Text Progress Note Date: 11/30/22 I was called by the nurse this morning. The patient had drank his bowel prep. He did not have any bowel movements after the prep. The patient is acting clinically obstructed. He has not had bowel movements in 4 days. The patient will undergo right colectomy today.
[2022-11-30 08:08] LABS: African American GFR (CKD) >90 (>60 ml/min/1.73 sqM); Anion Gap 2 mmol/L; Blood Urea Nitrogen 11 mg/dL (9-20); Calcium 7.3 mg/dL (8.4-10.2); Carbon Dioxide 27 mmol/L (22-30); Chloride 100 mmol/L (98-107); Glucose 80 mg/dL (74-99); Magnesium 2.1 mg/dL (1.6-2.3); Non-African American GFR(CKD) >90 (>60 ml/min/1.73 sqM); Potassium 4.3 mmol/L (3.5-5.1); Sodium 129 mmol/L (137-145)
[2022-11-30] MEDS: THIAMINE 100 MG TAB PO SCH (08:23)
[2022-11-30] MEDS: FOLIC ACID 1 MG TAB PO SCH (08:23)
[2022-11-30] MEDS: NICOTINE 21MG/24HR PATCH TRANSDERM SCH (08:23)
[2022-11-30 09:05] LABS: Anisocytosis Slight; HCT 26.8 % (39.0-53.0); HGB 8.5 gm/dL (13.0-17.5); Hypochromasia Moderate; MCH 22.5 pg (25.0-35.0); MCHC 31.6 g/dL (31.0-37.0); MCV 71.2 fL (80.0-100.0); Mean Platelet Volume 7.6; Microcytosis Marked; Platelet Count 432 k/uL (150-450); RBC 3.76 m/uL (4.30-5.90); RDW 19.9 % (11.5-15.5); Reticulocyte % 2.5 % (0.5-2.0); WBC 7.5 k/uL (3.8-10.6)
[2022-11-30] MEDS: SODIUM FERRIC GLUCONAT-SUCROSE 125 MG in SODIUM CHLORIDE 0.9% 100 ML IVPB SCH (09:13)
[2022-11-30 09:57] LABS: INR 0.9 (<1.2); Partial Thromboplastin Time 28.1 sec (22.0-30.0)
[2022-11-30] MEDS ORDERED: fentaNYL (PF) 50 MCG/ML 2 ML AMP IVP ONE (10:36)
[2022-11-30] MEDS ORDERED: DEXAMETHASONE SOD PHOSPHATE 4 MG/ML 1 ML VIAL IVP ONE (10:37)
[2022-11-30] MEDS ORDERED: ONDANSETRON 4 MG/2 ML VIAL IVP ONE (10:37)
--- NOTE | 2022-11-30 10:43 | P.ANPRN ---
Procedure Note - Anesthesia - Nerve Block Performed Bilateral Transversus Abdominis Single Time Out Performed: Yes Date of Procedure: 11/30/22 Procedure Start Time: 10:36 Procedure Stop Time: 10:40 Location of Patient: PreOp Indication: Acute Post-Operative Pain, Requested by Surgeon Sedation Type: Sedate with meaningful contact maintained Preparation: Sterile Prep Position: Supine Catheter: None Needle Types: Pajunk Needle Gauge: 21 Ultrasound used to visualize needle placement: Yes Ultrasound used to observe medication spread: Yes Injectate: Other (see comment) (0.25% Ropivicaine 15 ml left, 15 ml right) Blood Aspirated: No Pain Paresthesia on Injection Noted: No Resistance on Injection: Normal Image Stored and Saved: Yes Events: Uneventful and Well Tolerated
[2022-11-30] MEDS ORDERED: IV FLUID CONTINUATION 1,000 ML IV ONE (10:47)
[2022-11-30] MEDS ORDERED: SUCCINYLCHOLINE CHLORIDE 200 MG/10 ML VIAL IV ONE (11:19)
[2022-11-30] MEDS ORDERED: NEOSTIGMINE 1 MG/ML 10 ML VIAL ONE (11:19)
[2022-11-30] MEDS ORDERED: ETOMIDATE 2 MG/ML 10 ML VIAL ONE (11:19)
[2022-11-30] MEDS ORDERED: fentaNYL (PF) 50 MCG/ML 2 ML AMP ONE (11:19)
[2022-11-30] MEDS ORDERED: SODIUM CHLORIDE 0.9% 100 ML BAG ONE (11:19)
[2022-11-30] MEDS ORDERED: ceFAZolin 1,000 MG VIAL ONE (11:19)
[2022-11-30] MEDS ORDERED: LIDOCAINE 2% INJ 20 MG/ML (2 ML VIAL) ONE (11:19)
[2022-11-30] MEDS ORDERED: ROCURONIUM 10 MG/ML (5 ML VIAL) IV ONE (11:19)
[2022-11-30] MEDS ORDERED: GLYCOPYRROLATE 0.2 MG/ML 2 ML VIAL ONE (11:19)
[2022-11-30] MEDS ORDERED: HYDROmorphone (PF) 1 MG/ML ONE (11:19)
[2022-11-30] MEDS ORDERED: SODIUM CHLORIDE 0.9% (PF) 10 ML VIAL ONE (11:19)
[2022-11-30] MEDS ORDERED: ROPIVACAINE 5 MG/ML 30 ML VIAL ONE (11:19)
[2022-11-30] MEDS ORDERED: PHENYLEPHRINE-0.9% NACL SYG 1,000 MCG/10 ML SYRINGE ONE (11:19)
[2022-11-30] MEDS ORDERED: SODIUM CHLORIDE 0.9% 100 ML with ceFAZolin 2,000 MG IV ONE ×2 (11:40)
[2022-11-30] MEDS ORDERED: LACTATED RINGERS 1,000 ML IV ONE (12:20)
[2022-11-30] MEDS ORDERED: ONDANSETRON 4 MG/2 ML VIAL IVP PRN (12:53)
[2022-11-30] MEDS ORDERED: METOCLOPRAMIDE 5 MG/ML 2 ML VIAL IVP PRN (12:53)
[2022-11-30] MEDS ORDERED: SODIUM CHLORIDE 0.9% 1,000 ML IV ONE ×2 (13:18)
--- NOTE | 2022-11-30 13:31 | P.OP ---
Date of Procedure: 11/30/22 Preoperative Diagnosis: Obstructing right colon mass Postoperative Diagnosis: Obstructing right colon mass with involvement of small bowel Procedure(s) Performed: Ileocolectomy Small bowel resection Partial omentectomy Anesthesia: RITA Surgeon: Saurabh Beck Estimated Blood Loss (ml): 50 Pathology: other (Right colon, small bowel) Condition: stable Disposition: PACU Description of Procedure: Patient's placed on the table in the supine position. He received general endotracheal anesthesia. His abdomen was prepped and draped usual fashion. The colonoscopy palpated through the abdominal wall. The abdomen was entered through midline incision. Upon entering the abdomen there was dilated small bowel seen. At the level of the right colon there was a large mass. The mesh measured approximately 20 cm in diameter. The mass appeared to be causing proximal obstruction of the small bowel. The liver was palpated there is no masses palpated liver. This point the proximal transverse colon was transected with a GI stapler. And then the terminal ileum was transected with the CASSI stapler. A loop of small bowel was caught up in the mass in the small bowel was then transected proximally distally with the CASSI stapler. Using the Enseal device the mesentery the mass was divided. The white line of Toldt was divided mass rotated medially. The mass was rotated off of the duodenum. The specimen was then sent to pathology. Several of the larger vessels in the omentum were ligated with 0 silk ties. The abdomen was area there is no bleeding seen. At this point the ileocolonic anastomosis then created between the terminal ileum and the proximal transverse colon. This was performed using the CASSI and TA stapler a [id number] functional end-to-end staple anastomosis. 3-0 GI silk sutures used to crotch stitch. The window in the mesentery was closed with 3-0 GI silk suture. Next a mother small bowel anastomosis created between the terminal ileum and the proximal small bowel. Using a CASSI and TA stapler a [id number] functional end-to-end staple anastomosis created. Through GI silk suture was uses a crotch stitch. The window in the mesentery was closed with 3- 0 Vicryl suture. The abdomen was irrigated there is no bleeding seen. The proximal small bowel had been dilated due to chronic obstruction. No other obstruction was seen. The abdomen was then closed with looped #1 PDS suture. Skin was closed ronda. Patient was sent to recovery room in stable condition.
--- NOTE | 2022-11-30 15:46 | P.PN ---
Subjective Progress Note Date: 11/30/22 Principal diagnosis: Colon mass In follow-up today patient is being prepped for surgery. He is denying any acute pain, he has not had a bowel movement or passed gas today. Objective - Vital Signs Vital signs: Vital Signs Temp 97 F L 11/30/22 13:37 Pulse 48 L 11/30/22 13:52 Resp 16 11/30/22 13:52 BP 115/74 11/30/22 13:52 Pulse Ox 99 11/30/22 13:52 FiO2 Intake & Output 11/29/22 11/30/22 11/30/22 18:59 06:59 18:59 Intake Total 7764 913 5192 Output Total 150 1000 1085 Balance 1058 -690 1928 Weight 59.2 kg 62.1 kg Intake: IV 2300 Intake, IV Titration 550 Amount Sodium Chloride 0.9% 1, 450 000 ml @ 75 mls/hr IV . [id number] [facility] Rx#:[id number] Sodium Ferric Gluconat- 100 Sucrose 125 mg In Sodium Chloride 0.9% 100 ml @ 100 mls/hr IVPB DAILY [facility] Rx#:[id number] Oral 658 Blood Product 310 713 Pooled Cryoprecipitate 93 Unit [id number] Rc As-1 Unit 310 [id number] Rc As-1 Unit 310 [id number] Rc As-1 Unit 310 [id number] Output: Urine 150 1000 1010 Estimated Blood Loss 75 Other: Voiding Method Toilet Toilet Toilet # Voids 3 - Constitutional General appearance: Present: cooperative, no acute distress, thin - EENT Eyes: Present: anicteric sclerae, edentulous ENT: Present: hearing grossly normal - Respiratory Respiratory: bilateral: CTA - Cardiovascular Rhythm: regular Heart sounds: normal: S1, S2 Abnormal Heart Sounds: Absent: systolic murmur, diastolic murmur, rub, S3 Gallop, S4 Gallop, click, other - Peripheral edema foot Peripheral Edema: bilateral: Trace - Gastrointestinal General gastrointestinal: Present: soft, tenderness - Neurologic Neurologic: Present: CNII-XII intact - Musculoskeletal Musculoskeletal: Present: strength equal bilaterally - Psychiatric Psychiatric: Present: A&O x's 3, appropriate affect, intact judgment & insight - Labs CBC & Chem 7: 11/30/22 07:25 11/30/22 07:25 Labs: Abnormal Lab Results - Last 24 Hours (Table) 11/29/22 11/29/22 11/30/22 Range/Units 07:31 18:30 07:25 RBC 3.76 L (4.30-5.90) m/uL Hgb 8.5 L (13.0-17.5) gm/dL Hct 26.8 L (39.0-53.0) % MCV 71.2 L (80.0-100.0) fL MCH 22.5 L (25.0-35.0) pg RDW 19.9 H (11.5-15.5) % Retic Count 2.5 H (0.5-2.0) % Sodium (137-145) mmol/L Creatinine (0.66-1.25) mg/dL Calcium (8.4-10.2) mg/dL Carcinoembryonic Ag 29.8 H (0.0-4.9) ng/mL Crossmatch See Detail 11/30/22 Range/Units 07:25 RBC (4.30-5.90) m/uL Hgb (13.0-17.5) gm/dL Hct (39.0-53.0) % MCV (80.0-100.0) fL MCH (25.0-35.0) pg RDW (11.5-15.5) % Retic Count (0.5-2.0) % Sodium 129 L (137-145) mmol/L Creatinine 0.51 L (0.66-1.25) mg/dL Calcium 7.3 L (8.4-10.2) mg/dL Carcinoembryonic Ag (0.0-4.9) ng/mL Crossmatch Assessment and Plan (1) Colonic mass Current Visit: Yes Status: Acute Priority: High Code(s): K63.89 - OTHER SPECIFIED DISEASES OF INTESTINE SNOMED Code(s): 649346266 (2) Microcytic hypochromic anemia Current Visit: Yes Status: Acute Priority: High Code(s): D50.9 - IRON DEFICIENCY ANEMIA, UNSPECIFIED SNOMED Code(s): 35040625 Plan: Colon mass -Imaging suspicious for at least local regional malignancy -Pt reporting recent, unintentional wt loss -Discussed with patient and sister at the bedside need for Surgery as patient has symptoms of obstruction. After discussion about the risks of postponing surgery patient's sisters were agreeable to allow him to go to surgery. -Patient has been seen by General Surgery, plans for Surgery today, path pending -CEA Elevated at 29.8 Microcytic, hypochromic anemia -Likely multifactorial including losses from this suspicious colon mass, poor diet secondary to EtOH -CBC, iron studies reviewed -Parenteral iron ordered, continues -Hemoglobin 8.5 today, no need for transfusion. Transfuse for hemoglobin less than 7 attests: I seen and examined patient, performed H&P, developed impression and plan of care. Discussed with dictator. Agree with documentation, dictated as a scribe.
[2022-11-30] MEDS: HEPARIN SODIUM,PORCINE/PF 5,000 UNIT/0.5 ML SYRINGE SQ SCH (15:58)
[2022-11-30] MEDS: D5-0.45% NACL WITH KCL 20MEQ/L 1,000 ML IV SCH ×2 (15:59→20:24)
[2022-11-30] MEDS: HYDROmorphone 1 MG/ML 1 ML SYRINGE IVP PRN ×2 (15:59→20:25)
[2022-11-30] MEDS: LACTATED RINGERS 1,000 ML IV SCH ×2 (16:04→16:05)
[2022-11-30 16:22] LABS: Anisocytosis Moderate; Basophils % (A) 0 %; Eosinophils % (A) 0 %; HCT 40.3 % (39.0-53.0); Hypochromasia Marked; Lymphocytes # (A) 1.5 k/uL (1.0-4.8); Lymphocytes % (A) 16 %; MCH 24.2 pg (25.0-35.0); Mean Platelet Volume 6.9; Microcytosis Moderate; Monocytes # (A) 0.1 k/uL (0-1.0); Monocytes % (A) 1 %; Neutrophils # (A) 7.8 k/uL (1.3-7.7); Neutrophils % (A) 82 %; Platelet Count 426 k/uL (150-450); Poikilocytosis Slight; RBC 5.16 m/uL (4.30-5.90); RDW 21.3 % (11.5-15.5); WBC 9.6 k/uL (3.8-10.6)
--- NOTE | 2022-11-30 16:23 | P.PN ---
Subjective Progress Note Date: 11/30/22 Patient is a 62-year-old male with no known past medical history who presented to the emergency department with complaints of lower extremity swelling. On arrival to the ER his vital signs were within normal limits. Laboratory analysis was remarkable for hemoglobin 8.5, hematocrit 27.4, platelets 490, sodium 132, glucose 107, calcium 7.8, alkaline phosphatase 128, total bilirubin 6, albumin 2.8. BNP was elevated at 1470. Chest x-ray showed no acute process. In the ER he was given a dose of Lasix. Arrangements were made for admission. He was seen by cardiology and underwent echocardiogram which showed preserved systolic function. Liver ultrasound was completed with no signs of cirrhosis but did show gallbladder sludge. Patient subsequently underwent CT chest abdomen pelvis which showed cecal mass with mass in the ascending colon and lymphadenopathy. General surgery consulted. Patient was given colon prep and did not have any bowel movements. He was taken for ileocolectomy, small bowel ressection and partial omentectomy on 11/30/22. imaging: CT chest abdomen pelvis: Large cecal and ascending colonic mass felt to reflect malignancy until proven otherwise with surrounding stranding and fluid as well as adenopathy indicating regional spread no definitive evidence of metastatic disease to the liver or to the chest, urinary bladder cystitis Echocardiogram: Ejection fraction 55-60%, mild right ventricular dilatation, small pericardial effusion Patient seen and examined at bedside. He is having abdominal pain, some slight nausea, and wants to eat. Vital signs reviewed General: nontoxic, mild distress due to pain, appears at stated age Cardiovascular: S1S2 reg, no murmur, positive posterior tibial pulse bilateral, Lungs: Decreased bs bilateral, no rhonchi, no rales , no accessory muscle use Abdominal: Deferred due to pain Ext: no gross muscle atrophy, no edema b/l lower extremities, no contractures Neuro: CN II-XI grossly intact, no focal neuro deficits Psych: Alert, oriented, appropriate affect Assessment/plan: Large Cecal and ascending colonic mass s/p ileocolectomy, small bowel ressection and partial omentectomy on 11/30/22. -Case discussed with Dr. Beck status post right-sided colectomy. There was some involvement of the small intestine has been resected. - await pathology -Await further oncology recs Hyponatremia Hypotension -Continue normal saline at 75 mL per hour -Follow blood pressures - follow BMP B/l LE edema, due to hypoalbuminemia -Suspect that edema is due to poor nutritional status. - Echo with preserved EF, Liver US without cirrhosis - stop IV lasix Anemia, Iron deficiency thrombocytosis, resolved -Status post 3 units of packed red blood cells and 1 unit of cryo- - follow CBC - Iv Iron X 3 doses Nicotine dependency - nicotine replacement - cessation Alcohol Dependency - CIWA with ativan - Thiamine 100 gm daily and folic acid 1 mg daily. Imaging: none new Data Review: Vitals reviewed in pulse 48, respirations 16, blood pressure 115/74, O2 sat 99% on room air Labs reviewed and remarkable for hemoglobin 8.5 (stable from 8.2 yesterday), platelets of 432, reticulocyte 2.5, sodium 129, creatinine 0.51, vitamin B12 377, CEA 29.8 DVT prophylaxis: Heparin Anticipated discharge date: Pending Clinical Course Anticipated discharge place: Pending Clinical Course This dictation was prepared using [employer] voice recognition software. Though every attempt is made to correct errors during dictation some may still exist. Objective - Vital Signs Vital signs: Vital Signs Temp 97 F L 11/30/22 13:37 Pulse 48 L 11/30/22 13:52 Resp 16 11/30/22 13:52 BP 115/74 11/30/22 13:52 Pulse Ox 99 11/30/22 13:52 FiO2 Intake & Output 11/29/22 11/30/22 11/30/22 18:59 06:59 18:59 Intake Total 4970 863 9714 Output Total 150 1000 1085 Balance 1058 -690 3028 Weight 59.2 kg 62.1 kg Intake: IV 3400 Intake, IV Titration 550 Amount Sodium Chloride 0.9% 1, 450 000 ml @ 75 mls/hr IV . [id number] [facility] Rx#:[id number] Sodium Ferric Gluconat- 100 Sucrose 125 mg In Sodium Chloride 0.9% 100 ml @ 100 mls/hr IVPB DAILY [facility] Rx#:[id number] Oral 658 Blood Product 310 713 Pooled Cryoprecipitate 93 Unit [id number] Rc As-1 Unit 310 [id number] Rc As-1 Unit 310 [id number] Rc As-1 Unit 310 [id number] Output: Urine 150 1000 1010 Estimated Blood Loss 75 Other: Voiding Method Toilet Toilet Toilet # Voids 3 - Labs CBC & Chem 7: 11/30/22 07:25 11/30/22 07:25 Labs: Abnormal Lab Results - Last 24 Hours (Table) 11/29/22 11/29/22 11/30/22 Range/Units 07:31 18:30 07:25 RBC 3.76 L (4.30-5.90) m/uL Hgb 8.5 L (13.0-17.5) gm/dL Hct 26.8 L (39.0-53.0) % MCV 71.2 L (80.0-100.0) fL MCH 22.5 L (25.0-35.0) pg RDW 19.9 H (11.5-15.5) % Retic Count 2.5 H (0.5-2.0) % Sodium (137-145) mmol/L Creatinine (0.66-1.25) mg/dL Calcium (8.4-10.2) mg/dL Carcinoembryonic Ag 29.8 H (0.0-4.9) ng/mL Crossmatch See Detail 11/30/22 Range/Units 07:25 RBC (4.30-5.90) m/uL Hgb (13.0-17.5) gm/dL Hct (39.0-53.0) % MCV (80.0-100.0) fL MCH (25.0-35.0) pg RDW (11.5-15.5) % Retic Count (0.5-2.0) % Sodium 129 L (137-145) mmol/L Creatinine 0.51 L (0.66-1.25) mg/dL Calcium 7.3 L (8.4-10.2) mg/dL Carcinoembryonic Ag (0.0-4.9) ng/mL Crossmatch
[2022-11-30 16:34] LABS: HGB 12.5 gm/dL (13.0-17.5)
[2022-11-30 16:37] LABS: African American GFR (CKD) >90 (>60 ml/min/1.73 sqM); Anion Gap 6 mmol/L; Blood Urea Nitrogen 9 mg/dL (9-20); Calcium 7.2 mg/dL (8.4-10.2); Carbon Dioxide 24 mmol/L (22-30); Chloride 101 mmol/L (98-107); Glucose 94 mg/dL (74-99); Non-African American GFR(CKD) >90 (>60 ml/min/1.73 sqM); Potassium 4.4 mmol/L (3.5-5.1); Sodium 131 mmol/L (137-145)
[2022-11-30] MEDS: FAMOTIDINE 20 MG/2 ML VIAL IV SCH (20:24)
[2022-12-01] MEDS: SODIUM CHLORIDE 0.9% 1,000 ML IV SCH (00:01)
[2022-12-01] MEDS: HEPARIN SODIUM,PORCINE/PF 5,000 UNIT/0.5 ML SYRINGE SQ SCH ×4 (00:03→23:32)
[2022-12-01] MEDS: HYDROmorphone 1 MG/ML 1 ML SYRINGE IVP PRN ×4 (00:03→20:45)
[2022-12-01] MEDS: D5-0.45% NACL WITH KCL 20MEQ/L 1,000 ML IV SCH (06:29)
[2022-12-01 08:06] LABS: Anisocytosis Moderate; HCT 37.4 % (39.0-53.0); HGB 11.6 gm/dL (13.0-17.5); Hypochromasia Marked; MCHC 31.1 g/dL (31.0-37.0); MCV 77.2 fL (80.0-100.0); Mean Platelet Volume 6.7; Microcytosis Moderate; Platelet Count 453 k/uL (150-450); Poikilocytosis Slight; RBC 4.85 m/uL (4.30-5.90); RDW 21.5 % (11.5-15.5); WBC 10.5 k/uL (3.8-10.6)
[2022-12-01] MEDS: SODIUM FERRIC GLUCONAT-SUCROSE 125 MG in SODIUM CHLORIDE 0.9% 100 ML IVPB SCH (08:35)
[2022-12-01] MEDS: NICOTINE 21MG/24HR PATCH TRANSDERM SCH (08:36)
[2022-12-01] MEDS: FAMOTIDINE 20 MG/2 ML VIAL IV SCH ×2 (08:39→20:45)
[2022-12-01] MEDS: THIAMINE 100 MG TAB PO SCH (08:39)
[2022-12-01] MEDS: FOLIC ACID 1 MG TAB PO SCH (08:39)
[2022-12-01] MEDS: ALVIMOPAN 12 MG CAPSULE PO SCH ×2 (08:39→20:45)
[2022-12-01 08:49] LABS: ALT 16 U/L (4-49); AST 24 U/L (17-59); African American GFR (CKD) >90 (>60 ml/min/1.73 sqM); Albumin 2.1 g/dL (3.5-5.0); Alkaline Phosphatase 106 U/L (38-126); Anion Gap 3 mmol/L; Blood Urea Nitrogen 8 mg/dL (9-20); Calcium 7.3 mg/dL (8.4-10.2); Carbon Dioxide 23 mmol/L (22-30); Chloride 101 mmol/L (98-107); Glucose 266 mg/dL (74-99); Non-African American GFR(CKD) >90 (>60 ml/min/1.73 sqM); Phosphorus 4.3 mg/dL (2.5-4.5); Potassium 5.5 mmol/L (3.5-5.1); Sodium 127 mmol/L (137-145); Total Bilirubin 0.3 mg/dL (0.2-1.3); Total Protein 4.9 g/dL (6.3-8.2)
--- NOTE | 2022-12-01 12:12 | P.PN ---
Subjective Progress Note Date: 12/01/22 Hospital Course: Patient is a 62-year-old male with no known past medical history who presented to the emergency department with complaints of lower extremity swelling. On arrival to the ER his vital signs were within normal limits. Laboratory analysis was remarkable for hemoglobin 8.5, hematocrit 27.4, platelets 490, sodium 132, glucose 107, calcium 7.8, alkaline phosphatase 128, total bilirubin 6, albumin 2.8. BNP was elevated at 1470. Chest x-ray showed no acute process. In the ER he was given a dose of Lasix. Arrangements were made for admission. He was seen by cardiology and underwent echocardiogram which showed preserved systolic function. Liver ultrasound was completed with no signs of cirrhosis but did show gallbladder sludge. Patient subsequently underwent CT chest abdomen pelvis which showed cecal mass with mass in the ascending colon and lymphadenopathy. General surgery consulted. Patient was given colon prep and did not have any bowel movements. He was taken for ileocolectomy, small bowel ressection and partial omentectomy on 11/30/22. Subjective: Patient seen and examined at bedside. No acute events overnight. He claims that he has significant abdominal pain with movement. Denies any bowel movements as of yet, not passing any flatus. Has a Daley catheter in place. Pertinent positives and negatives as discussed above, a complete review of systems was performed and all other systems are negative. Vitals Signs Reviewed. General: nontoxic, no distress, appears at stated age, thin-appearing Derm: warm, dry, abdominal dressing clean, dry, intact Head: atraumatic, normocephalic, symmetric Eyes: EOMI, no lid lag, anicteric sclera Mouth: no lip lesion, mucus membranes moist Cardiovascular: S1S2 reg, no murmur Lungs: CTA bilateral, no rhonchi, no rales , no accessory muscle use Abdominal: soft, nontender to palpation, no guarding Ext: no gross muscle atrophy, no edema, no contractures Neuro: CN II-XI grossly intact, no focal neuro deficits Psych: Alert, oriented, appropriate affect Data Reviewed Today: Pertinent Labs: WBC 10.5, hemoglobin 11.6, platelet 453, sodium 127, potassium 5.5, creatinine 0.5 Imaging: No new imaging today Assessment and Plan: Active: Large Cecal and ascending colonic mass s/p ileocolectomy, small bowel ressection and partial omentectomy on 11/30/22. , Albumin 2.1 Hyponatremia Hyperkalemia B/l LE edema, due to hypoalbuminemia Anemia, Iron deficiency Nicotine dependence Alcohol dependence -Surgery following -On IV Tylenol, ibuprofen as needed -Fluids changed to D5LR given hyponatremia and hyperkalemia -Pathology pending, oncology following -Continue IV iron infusions -Counseled regarding smoking cessation -Continue thiamine and folic acid, Ativan as needed per CIWA scores Resolved: thrombocytosis Hypotension DVT ppx: Subcu heparin Code status: Full code Anticipated discharge place: Pending clinical course Anticipated discharge time: Pending clinical course Objective - Vital Signs Vital signs: Vital Signs Temp 98.1 F 12/01/22 08:34 Pulse 55 L 12/01/22 08:34 Resp 16 12/01/22 08:34 BP 108/74 12/01/22 08:34 Pulse Ox 97 12/01/22 08:58 FiO2 Intake & Output 11/30/22 12/01/22 12/01/22 18:59 06:59 18:59 Intake Total 4113 Output Total 1085 650 Balance 3028 -650 Intake: IV 3400 Blood Product 713 Pooled Cryoprecipitate 93 Unit [id number] Rc As-1 Unit 310 [id number] Rc As-1 Unit 310 [id number] Output: Urine 1010 650 Estimated Blood Loss 75 Other: Voiding Method Indwelling Catheter Toilet Indwelling Catheter - Labs CBC & Chem 7: 12/01/22 07:31 12/01/22 07:31 Labs: Abnormal Lab Results - Last 24 Hours (Table) 11/29/22 11/30/22 11/30/22 Range/Units 18:30 15:23 15:23 Hgb 12.5 L D (13.0-17.5) gm/dL Hct (39.0-53.0) % MCV 78.0 L D (80.0-100.0) fL MCH 24.2 L (25.0-35.0) pg RDW 21.3 H (11.5-15.5) % Plt Count (150-450) k/uL Neutrophils # 7.8 H (1.3-7.7) k/uL Sodium 131 L (137-145) mmol/L Potassium (3.5-5.1) mmol/L BUN (9-20) mg/dL Creatinine 0.54 L (0.66-1.25) mg/dL Glucose (74-99) mg/dL Calcium 7.2 L (8.4-10.2) mg/dL Total Protein (6.3-8.2) g/dL Albumin (3.5-5.0) g/dL Crossmatch See Detail 12/01/22 12/01/22 Range/Units 07:31 07:31 Hgb 11.6 L (13.0-17.5) gm/dL Hct 37.4 L (39.0-53.0) % MCV 77.2 L (80.0-100.0) fL MCH 24.0 L (25.0-35.0) pg RDW 21.5 H (11.5-15.5) % Plt Count 453 H (150-450) k/uL Neutrophils # (1.3-7.7) k/uL Sodium 127 L (137-145) mmol/L Potassium 5.5 H (3.5-5.1) mmol/L BUN 8 L (9-20) mg/dL Creatinine 0.50 L (0.66-1.25) mg/dL Glucose 266 H (74-99) mg/dL Calcium 7.3 L (8.4-10.2) mg/dL Total Protein 4.9 L (6.3-8.2) g/dL Albumin 2.1 L (3.5-5.0) g/dL Crossmatch
[2022-12-01] MEDS ORDERED: PIPERACILLIN-TAZOBACTAM 3.375 GM in SODIUM CHLORIDE 0.9% 100 ML IVPB STA (12:20)
[2022-12-01 12:25] VITALS: BMI 18.6
[2022-12-01] MEDS: ACETAMINOPHEN IV (For NPO) 1,000 MG in EMPTY BAG 1 BAG IVPB SCH ×3 (12:59→23:32)
[2022-12-01] MEDS: DEXTROSE 5%-LACTATED RINGERS 1,000 ML IV SCH ×2 (13:00→21:43)
--- NOTE | 2022-12-01 13:50 | P.PN ---
Subjective Progress Note Date: 12/01/22 CHIEF COMPLAINT: Obstructing right colon mass HISTORY OF PRESENT ILLNESS: Patient is postop day #1 status post ileocolectomy, small bowel resection and partial omentectomy. Patient does complain of abdomi nal pain. He denies any vomiting. He did report nausea. Denies any flatus. Afebrile. WBC is 10.5 Hgb 11.6 platelets 453 sodium is 127 potassium is 5.5 creatinine 0.50 patient is also receiving IV iron. PHYSICAL EXAM: VITAL SIGNS: Reviewed. GENERAL: Well-developed in no acute distress. HEENT: No sclera icterus. Extraocular movements grossly intact. Moist buccal mucosa. Head is atraumatic, normocephalic. ABDOMEN: Mildly distended. Incisional dressing clean dry and intact. NEUROLOGIC: Alert and oriented. Cranial nerves II through XII grossly intact. ASSESSMENT: 1. Obstructing right colon mass with involvement of small bowel status post ileal colectomy, small bowel resection and partial omentectomy 2. History of Daily alcohol use 3. Hyperkalemia and hyponatremia PLAN: -Continue entereg -Start IV antibiotics -Keep patient nothing by mouth -IV fluids adjusted per medicine service for hyperkalemia and hyponatremia -IV Tylenol added for pain control -Continue IV Dilaudid PRN -Encouraged patient to increase activity level -Encouraged patient to use incentive spirometer -GI prophylaxis pepcid and DVT prophylaxis subcu heparin Physician Necktie Centralizing Machine Operator note has been reviewed by physician. Signing provider agrees with the documented findings, assessment, and plan of care. Objective - Vital Signs Vital signs: Vital Signs Temp 97.9 F 12/01/22 12:00 Pulse 60 12/01/22 12:00 Resp 16 12/01/22 12:00 BP 137/91 12/01/22 12:00 Pulse Ox 99 12/01/22 12:00 FiO2 Intake & Output 11/30/22 12/01/22 12/01/22 18:59 06:59 18:59 Intake Total 4113 Output Total 1085 650 Balance 3028 -650 Weight 62.1 kg Intake: IV 3400 Blood Product 713 Pooled Cryoprecipitate 93 Unit [id number] Rc As-1 Unit 310 [id number] Rc As-1 Unit 310 [id number] Output: Urine 1010 650 Estimated Blood Loss 75 Other: Voiding Method Indwelling Catheter Toilet Indwelling Catheter - Labs CBC & Chem 7: 12/01/22 07:31 12/01/22 07:31 Labs: Abnormal Lab Results - Last 24 Hours (Table) 11/30/22 11/30/22 12/01/22 Range/Units 15:23 15:23 07:31 Hgb 12.5 L D 11.6 L (13.0-17.5) gm/dL Hct 37.4 L (39.0-53.0) % MCV 78.0 L D 77.2 L (80.0-100.0) fL MCH 24.2 L 24.0 L (25.0-35.0) pg RDW 21.3 H 21.5 H (11.5-15.5) % Plt Count 453 H (150-450) k/uL Neutrophils # 7.8 H (1.3-7.7) k/uL Sodium 131 L (137-145) mmol/L Potassium (3.5-5.1) mmol/L BUN (9-20) mg/dL Creatinine 0.54 L (0.66-1.25) mg/dL Glucose (74-99) mg/dL Calcium 7.2 L (8.4-10.2) mg/dL Total Protein (6.3-8.2) g/dL Albumin (3.5-5.0) g/dL 12/01/22 Range/Units 07:31 Hgb (13.0-17.5) gm/dL Hct (39.0-53.0) % MCV (80.0-100.0) fL MCH (25.0-35.0) pg RDW (11.5-15.5) % Plt Count (150-450) k/uL Neutrophils # (1.3-7.7) k/uL Sodium 127 L (137-145) mmol/L Potassium 5.5 H (3.5-5.1) mmol/L BUN 8 L (9-20) mg/dL Creatinine 0.50 L (0.66-1.25) mg/dL Glucose 266 H (74-99) mg/dL Calcium 7.3 L (8.4-10.2) mg/dL Total Protein 4.9 L (6.3-8.2) g/dL Albumin 2.1 L (3.5-5.0) g/dL
[2022-12-01] MEDS: PIPERACILLIN-TAZOBACTAM 3.375 GM in SODIUM CHLORIDE 0.9% 100 ML IVPB SCH ×2 (17:50→23:32)
[2022-12-01] MEDS: LACTATED RINGERS 1,000 ML IV SCH (20:32)
[2022-12-01] MEDS: ONDANSETRON 4 MG/2 ML VIAL IVP PRN (20:45)
[2022-12-02] MEDS: DEXTROSE 5%-LACTATED RINGERS 1,000 ML IV SCH ×2 (04:52→11:59)
[2022-12-02] MEDS: ACETAMINOPHEN IV (For NPO) 1,000 MG in EMPTY BAG 1 BAG IVPB SCH (04:52)
[2022-12-02 04:57] LABS: African American GFR (CKD) >90 (>60 ml/min/1.73 sqM); Anion Gap 2 mmol/L; Blood Urea Nitrogen 9 mg/dL (9-20); Calcium 7.6 mg/dL (8.4-10.2); Carbon Dioxide 25 mmol/L (22-30); Chloride 101 mmol/L (98-107); Glucose 97 mg/dL (74-99); Non-African American GFR(CKD) >90 (>60 ml/min/1.73 sqM); Potassium 4.3 mmol/L (3.5-5.1); Sodium 128 mmol/L (137-145)
[2022-12-02 05:02] LABS: Anisocytosis Moderate; Basophils % (A) 0 %; Eosinophils # (A) 0.1 k/uL (0-0.7); Eosinophils % (A) 1 %; HCT 34.5 % (39.0-53.0); HGB 11.1 gm/dL (13.0-17.5); Hypochromasia Moderate; Lymphocytes # (A) 1.8 k/uL (1.0-4.8); Lymphocytes % (A) 34 %; MCH 24.8 pg (25.0-35.0); MCHC 32.1 g/dL (31.0-37.0); MCV 77.3 fL (80.0-100.0); Mean Platelet Volume 6.6; Microcytosis Moderate; Monocytes # (A) 0.3 k/uL (0-1.0); Monocytes % (A) 6 %; Neutrophils # (A) 3.1 k/uL (1.3-7.7); Neutrophils % (A) 58 %; Platelet Count 403 k/uL (150-450); RBC 4.46 m/uL (4.30-5.90); RDW 21.9 % (11.5-15.5); WBC 5.3 k/uL (3.8-10.6)
[2022-12-02] MEDS: ONDANSETRON 4 MG/2 ML VIAL IVP PRN (05:20)
[2022-12-02] MEDS: HYDROmorphone 1 MG/ML 1 ML SYRINGE IVP PRN ×6 (05:21→23:45)
[2022-12-02] MEDS: SODIUM FERRIC GLUCONAT-SUCROSE 125 MG in SODIUM CHLORIDE 0.9% 100 ML IVPB SCH (08:35)
[2022-12-02] MEDS: FOLIC ACID 1 MG TAB PO SCH (08:35)
[2022-12-02] MEDS: THIAMINE 100 MG TAB PO SCH (08:35)
[2022-12-02] MEDS: FAMOTIDINE 20 MG/2 ML VIAL IV SCH ×2 (08:36→20:18)
[2022-12-02] MEDS: NICOTINE 21MG/24HR PATCH TRANSDERM SCH (08:36)
[2022-12-02] MEDS: HEPARIN SODIUM,PORCINE/PF 5,000 UNIT/0.5 ML SYRINGE SQ SCH ×3 (08:36→23:44)
[2022-12-02] MEDS: ALVIMOPAN 12 MG CAPSULE PO SCH ×2 (08:36→20:18)
[2022-12-02] MEDS: PIPERACILLIN-TAZOBACTAM 3.375 GM in SODIUM CHLORIDE 0.9% 100 ML IVPB SCH ×3 (10:01→23:44)
--- NOTE | 2022-12-02 11:23 | P.PN ---
Subjective Progress Note Date: 12/02/22 Hospital Course: Patient is a 62-year-old male with no known past medical history who presented to the emergency department with complaints of lower extremity swelling. On arrival to the ER his vital signs were within normal limits. Laboratory analysis was remarkable for hemoglobin 8.5, hematocrit 27.4, platelets 490, sodium 132, glucose 107, calcium 7.8, alkaline phosphatase 128, total bilirubin 6, albumin 2.8. BNP was elevated at 1470. Chest x-ray showed no acute process. In the ER he was given a dose of Lasix. Arrangements were made for admission. He was seen by cardiology and underwent echocardiogram which showed preserved systolic function. Liver ultrasound was completed with no signs of cirrhosis but did show gallbladder sludge. Patient subsequently underwent CT chest ab domen pelvis which showed cecal mass with mass in the ascending colon and lymphadenopathy. General surgery consulted. Patient was given colon prep and did not have any bowel movements. He was taken for ileocolectomy, small bowel ressection and partial omentectomy on 11/30/22. Awaiting bowel function. Subjective: Patient seen and examined at bedside. No acute events overnight. His abdominal pain is better. Denies any bowel movements as of yet, not passing any flatus. Daley catheter removed, urinating well. Pertinent positives and negatives as discussed above, a complete review of sys tems was performed and all other systems are negative. Vitals Signs Reviewed. General: nontoxic, no distress, appears at stated age, thin-appearing Derm: warm, dry, abdominal dressing clean, dry, intact Head: atraumatic, normocephalic, symmetric Eyes: EOMI, no lid lag, anicteric sclera Mouth: no lip lesion, mucus membranes moist Cardiovascular: S1S2 reg, no murmur Lungs: CTA bilateral, no rhonchi, no rales , no accessory muscle use Abdominal: soft, nontender to palpation, no guarding Ext: no gross muscle atrophy, no edema, no contractures Neuro: CN II-XI grossly intact, no focal neuro deficits Psych: Alert, oriented, appropriate affect Data Reviewed Today: Pertinent Labs: WBC 5.3, hemoglobin 11.1, sodium 128, creatinine 0.59 Imaging: No new imaging today Assessment and Plan: Active: Large Cecal and ascending colonic mass s/p ileocolectomy, small bowel ressection and partial omentectomy on 11/30/22 Hyponatremia, improving B/l LE edema, due to hypoalbuminemia Anemia, Iron deficiency Nicotine dependence Alcohol dependence -Surgery following, maintain patient on IV Zosyn 3.375 every 8 hours -On oral Tylenol as needed, oral ibuprofen as needed for pain -Continue D5 LR at 100 mL an hour -Pathology pending, oncology following -Continue IV iron infusions -Counseled regarding smoking cessation -Continue thiamine and folic acid, Ativan as needed per CIWA scores Resolved: thrombocytosis Hypotension Hyperkalemia DVT ppx: Subcu heparin Code status: Full code Anticipated discharge place: Pending clinical course Anticipated discharge time: Pending clinical course Objective - Vital Signs Vital signs: Vital Signs Temp 98.3 F 12/02/22 08:33 Pulse 67 12/02/22 08:33 Resp 16 12/02/22 08:33 BP 128/88 12/02/22 08:33 Pulse Ox 97 12/02/22 08:33 FiO2 Intake & Output 12/01/22 12/02/22 12/02/22 18:59 06:59 18:59 Intake Total 10 Output Total 500 200 Balance -490 -200 Weight 62.1 kg Intake: IV 10 Invasive Line 4 10 Output: Urine 500 100 Uretheral (Daley) 500 Post Void Residual 100 Other: Voiding Method Urinal Urinal Urinal # Voids 1 - Labs CBC & Chem 7: 12/02/22 04:18 12/02/22 04:18 Labs: Abnormal Lab Results - Last 24 Hours (Table) 11/30/22 12/02/22 12/02/22 Range/Units 07:25 04:18 04:18 Hgb 11.1 L (13.0-17.5) gm/dL Hct 34.5 L (39.0-53.0) % MCV 77.3 L (80.0-100.0) fL MCH 24.8 L (25.0-35.0) pg RDW 21.9 H (11.5-15.5) % Sodium 128 L (137-145) mmol/L Creatinine 0.59 L (0.66-1.25) mg/dL Calcium 7.6 L (8.4-10.2) mg/dL RBC Folate 966 H (280 - 791) ng/mL
--- NOTE | 2022-12-02 13:29 | P.PN ---
Subjective Progress Note Date: 12/02/22 CHIEF COMPLAINT: Obstructing right colon mass HISTORY OF PRESENT ILLNESS: Patient is postop day #2 status post ileocolectomy, small bowel resection and partial omentectomy. Patient does complain of abdomi nal pain. He denies any vomiting. No bowel activity reported. Afebrile. WBC 5.3H 11.1 platelets 403 sodium is 128 potassium is down to 4.3 creatinine 0.59 Patient seen and examined with Dr. Beck PHYSICAL EXAM: VITAL SIGNS: Reviewed. GENERAL: Well-developed in no acute distress. HEENT: No sclera icterus. Extraocular movements grossly intact. Moist buccal mucosa. Head is atraumatic, normocephalic. ABDOMEN: Mildly distended. Incisional dressing clean dry and intact. NEUROLOGIC: Alert and oriented. Cranial nerves II through XII grossly intact. ASSESSMENT: 1. Obstructing right colon mass with involvement of small bowel status post ileal colectomy, small bowel resection and partial omentectomy 2. History of Daily alcohol use 3. Hyperkalemia and hyponatremia PLAN: -Start clear liquids -Continue entereg -Continue IV antibiotics -Continue IV fluids -Continue pain management -Encouraged patient to increase activity level -Encouraged patient to use incentive spirometer -GI prophylaxis pepcid and DVT prophylaxis subcu heparin Physician Internet Marketing Analyst note has been reviewed by physician. Signing provider agrees with the documented findings, assessment, and plan of care. Objective - Vital Signs Vital signs: Vital Signs Temp 97.9 F 12/02/22 04:00 Pulse 53 L 12/02/22 04:00 Resp 16 12/02/22 04:00 BP 124/78 12/02/22 04:00 Pulse Ox 96 12/02/22 04:00 FiO2 Intake & Output 12/01/22 12/02/22 12/02/22 18:59 06:59 18:59 Intake Total 10 Output Total 500 200 Balance -490 -200 Weight 62.1 kg Intake: IV 10 Invasive Line 4 10 Output: Urine 500 100 Uretheral (Daley) 500 Post Void Residual 100 Other: Voiding Method Urinal Urinal # Voids 1 - Labs CBC & Chem 7: 12/02/22 04:18 12/02/22 04:18 Labs: Abnormal Lab Results - Last 24 Hours (Table) 11/30/22 12/02/22 12/02/22 Range/Units 07:25 04:18 04:18 Hgb 11.1 L (13.0-17.5) gm/dL Hct 34.5 L (39.0-53.0) % MCV 77.3 L (80.0-100.0) fL MCH 24.8 L (25.0-35.0) pg RDW 21.9 H (11.5-15.5) % Sodium 128 L (137-145) mmol/L Creatinine 0.59 L (0.66-1.25) mg/dL Calcium 7.6 L (8.4-10.2) mg/dL RBC Folate 966 H (280 - 791) ng/mL
[2022-12-02] MEDS: LACTATED RINGERS 1,000 ML IV SCH (15:52)
[2022-12-03] MEDS: IBUPROFEN 400 MG TAB PO PRN (04:30)
[2022-12-03] MEDS: HYDROmorphone 1 MG/ML 1 ML SYRINGE IVP PRN ×4 (04:31→20:04)
[2022-12-03] MEDS: DEXTROSE 5%-LACTATED RINGERS 1,000 ML IV SCH ×2 (05:08→07:33)
[2022-12-03 05:11] LABS: Anisocytosis Moderate; Basophils % (A) 0 %; Eosinophils # (A) 0.1 k/uL (0-0.7); Eosinophils % (A) 1 %; HCT 34.2 % (39.0-53.0); HGB 10.5 gm/dL (13.0-17.5); Hypochromasia Moderate; Lymphocytes # (A) 2.2 k/uL (1.0-4.8); Lymphocytes % (A) 42 %; MCH 23.5 pg (25.0-35.0); MCHC 30.6 g/dL (31.0-37.0); MCV 76.8 fL (80.0-100.0); Mean Platelet Volume 6.8; Microcytosis Moderate; Monocytes # (A) 0.3 k/uL (0-1.0); Monocytes % (A) 7 %; Neutrophils # (A) 2.4 k/uL (1.3-7.7); Neutrophils % (A) 47 %; Platelet Count 420 k/uL (150-450); Poikilocytosis Slight; RBC 4.46 m/uL (4.30-5.90); RDW 21.6 % (11.5-15.5); WBC 5.1 k/uL (3.8-10.6)
[2022-12-03 05:23] LABS: African American GFR (CKD) >90 (>60 ml/min/1.73 sqM); Anion Gap 4 mmol/L; Blood Urea Nitrogen 8 mg/dL (9-20); Calcium 7.6 mg/dL (8.4-10.2); Carbon Dioxide 24 mmol/L (22-30); Chloride 100 mmol/L (98-107); Glucose 96 mg/dL (74-99); Non-African American GFR(CKD) >90 (>60 ml/min/1.73 sqM); Sodium 128 mmol/L (137-145)
[2022-12-03] MEDS: FAMOTIDINE 20 MG/2 ML VIAL IV SCH ×2 (07:42→20:03)
[2022-12-03] MEDS: HEPARIN SODIUM,PORCINE/PF 5,000 UNIT/0.5 ML SYRINGE SQ SCH ×3 (07:42→23:50)
[2022-12-03] MEDS: FOLIC ACID 1 MG TAB PO SCH (07:42)
[2022-12-03] MEDS: NICOTINE 21MG/24HR PATCH TRANSDERM SCH (07:42)
[2022-12-03] MEDS: ALVIMOPAN 12 MG CAPSULE PO SCH ×2 (07:42→20:03)
[2022-12-03] MEDS: THIAMINE 100 MG TAB PO SCH (07:42)
[2022-12-03] MEDS: PIPERACILLIN-TAZOBACTAM 3.375 GM in SODIUM CHLORIDE 0.9% 100 ML IVPB SCH ×3 (07:43→23:50)
--- NOTE | 2022-12-03 09:23 | P.PN ---
Subjective Progress Note Date: 12/03/22 Principal diagnosis: Colon cancer Patient underwent right colectomy 3 days ago passing flatus. No bowel movement. Mild bloating. Tolerating clear liquids. Mild pain. White blood cell count 5.1, hemoglobin 10.5. Objective - Vital Signs Vital signs: Vital Signs Temp 97.7 F 12/03/22 07:36 Pulse 76 12/03/22 07:36 Resp 17 12/03/22 07:36 BP 128/87 12/03/22 07:36 Pulse Ox 97 12/03/22 07:36 FiO2 Intake & Output 12/02/22 12/03/22 12/03/22 18:59 06:59 18:59 Intake Total 480 240 Output Total 650 450 Balance -170 -210 Weight 62.1 kg Intake: Oral 480 240 Output: Urine 650 450 Other: Voiding Method Urinal Urinal Urinal # Voids 2 - Exam Abdomen: Soft, mild distention, minimal tenderness, incision clean and dry - Labs CBC & Chem 7: 12/03/22 04:38 12/03/22 04:38 Labs: Abnormal Lab Results - Last 24 Hours (Table) 12/03/22 12/03/22 Range/Units 04:38 04:38 Hgb 10.5 L (13.0-17.5) gm/dL Hct 34.2 L (39.0-53.0) % MCV 76.8 L (80.0-100.0) fL MCH 23.5 L (25.0-35.0) pg MCHC 30.6 L (31.0-37.0) g/dL RDW 21.6 H (11.5-15.5) % Sodium 128 L (137-145) mmol/L BUN 8 L (9-20) mg/dL Creatinine 0.65 L (0.66-1.25) mg/dL Calcium 7.6 L (8.4-10.2) mg/dL Assessment and Plan (1) Colonic mass Narrative/Plan: Patient with right colon mass doing well after recent right colectomy. Continue clear liquids. Increase activity. Change abdominal dressing. Current Visit: Yes Status: Acute Priority: High Code(s): K63.89 - OTHER SPECIFIED DISEASES OF INTESTINE SNOMED Code(s): 448234885
[2022-12-03] MEDS: SODIUM FERRIC GLUCONAT-SUCROSE 125 MG in SODIUM CHLORIDE 0.9% 100 ML IVPB SCH (10:08)
--- NOTE | 2022-12-03 11:02 | P.NPCON ---
History of Present Illness - Reason for Consult hyponatremia - History of Present Illness Patient is a 62-year-old male who was admitted to the hospital with complaints of lower extremity swelling. He was noted to have bowel obstruction and was also found to have a colonic mass on CT of the abdomen. Patient is status post ileocolectomy, small bowel resection and partial omentectomy on 11/30/2022. Patient received IV Lasix for volume overload and significant lower extremity edema previously. Serum sodium had been initially around 131-1 32 mg/L and dropped down to 1 27 mg/L. Patient was maintained on D5 LR at 100 ML per hour which was discontinued today. Patient states he has been coughing and feels congested. Currently voiding in urinal. Post void residual was 100 ML. Review of Systems As per HPI Past Medical History Past Medical History: No Reported History History of Any Multi-Drug Resistant Organisms: None Reported Past Surgical History: Orthopedic Surgery Additional Past Surgical History / Comment(s): right leg surgery for broken bone Past Anesthesia/Blood Transfusion Reactions: No Reported Reaction Past Psychological History: No Psychological Hx Reported Smoking Status: Current every day smoker Past Alcohol Use History: Daily Past Drug Use History: Marijuana - Past Family History Father Family Medical History: Cancer, Chest Pain / Angina, Hyperlipidemia, Hypertension, Pneumonia Additional Family Medical History / Comment(s): lymphoma Medications and Allergies Home Medications Medication Instructions Recorded Confirmed Type oxyCODONE HCL [OxyIR] 5 mg PO Q6H PRN 3 Days #12 tab 12/02/22 Rx Allergies Allergy/AdvReac Type Severity Reaction Status Date / Time No Known Allergies Allergy Verified 11/28/22 06:33 Physical Exam Vitals: Vital Signs Temp Pulse Pulse Resp BP Pulse Ox 12/03/22 07:36 97.7 F 76 17 128/87 97 12/03/22 04:30 98.6 F 55 L 17 128/87 96 12/03/22 02:29 51 L 67 15 12/02/22 23:40 98.1 F 67 15 145/91 97 12/02/22 20:10 97.4 F L 56 L 19 150/91 98 12/02/22 13:50 97.8 F 59 L 16 132/86 98 12/02/22 11:58 97.5 F L 57 L 16 134/83 98 Intake and Output 12/02/22 12/03/22 12/03/22 22:59 06:59 14:59 Intake Total 480 Output Total 300 450 Balance 180 -450 Intake: Oral 480 Output: Urine 300 450 Other: Voiding Method Urinal Urinal Urinal # Voids 2 Patient is awake, comfortable, in no acute distress Examination of the heart S1 and S2 Examination of the lungs bilateral breath sounds are heard Abdomen is soft incision is intact no significant tenderness Examination of lower extremities shows edema 1+ bilaterally [employer] exam grossly intact Results - Lab Results Most recent lab results Calcium 7.6 mg/dL (8.4-10.2) L 12/03/22 04:38 Phosphorus 4.3 mg/dL (2.5-4.5) 12/01/22 07:31 Magnesium 2.0 mg/dL (1.6-2.3) 12/01/22 07:31 12/03/22 04:38 12/03/22 04:38 Assessment and Plan Assessment: 1. Hyponatremia appears mildly hyperkalemic. Agree with discontinuation of IV fluids. Urine osmolality has been ordered and is currently pending. Patient is advised to increase oral intake particularly protein when cleared by surgery. Also could be possibly related to NSAIDs. 2. Colonic mass status post ileocolectomy small bowel resection and partial omentectomy, pathology is pending 3. History of EtOH abuse 4. Hyperkalemia most likely associated with elevated blood sugar which was noted to be 266 and NSAIDs. potassium improved with improvement in blood sugar. No urine retention was noted. 5. Bilateral lower extremity edema possibly related to hypoalbuminemia, ejection fraction is preserved on echocardiogram. UA shows trace protein. Edema is worsened with use of NSAIDs however we may continue the Motrin if patient needs it for pain control. Consider decreasing dose. Plan: Agree with discontinuation of IV fluids Check chest x-ray Await urine osmolality. Would encourage increased protein intake as tolerated once patient is allowed to eat. Consider decreasing dose of ibuprofen next Thank you for the consultation. We will continue to follow the patient with you during his hospitalization.
[2022-12-03] MEDS: HYDROcodone/APAP 7.5-325MG 1 EACH TAB PO PRN ×2 (11:56→23:51)
--- NOTE | 2022-12-03 12:40 | XR ---
EXAMINATION TYPE: XR chest 1V DATE OF EXAM: 12/03/2022 COMPARISON: 11/27/2022 INDICATION: CHF TECHNIQUE: Single frontal view of the chest is obtained. FINDINGS: The heart size is normal. The pulmonary vasculature is normal. Mild subsegmental atelectasis at the right base. IMPRESSION: 1. Mild right subsegmental atelectasis.
--- NOTE | 2022-12-03 13:58 | P.PN ---
Subjective Progress Note Date: 12/03/22 Patient is a 62-year-old male with no known past medical history who presented to the emergency department with complaints of lower extremity swelling. On arrival to the ER his vital signs were within normal limits. Laboratory analysis was remarkable for hemoglobin 8.5, hematocrit 27.4, platelets 490, sodium 132, glucose 107, calcium 7.8, alkaline phosphatase 128, total bilirubin 6, albumin 2.8. BNP was elevated at 1470. Chest x-ray showed no acute process. In the ER he was given a dose of Lasix. Arrangements were made for admission. He was seen by cardiology and underwent echocardiogram which showed preserved systolic function. Liver ultrasound was completed with no signs of cirrhosis but did show gallbladder sludge. Patient subsequently underwent CT chest abdomen pelvis which showed cecal mass with mass in the ascending colon and lymphadenopathy. General surgery consulted. Patient was given colon prep and did not have any bowel movements. He was taken for ileocolectomy, small bowel ressection and partial omentectomy on 11/30/22. He continued to do well post-op but did struggle with some hyperkalemia and hyponatremia. Nephrology was consulted Imaging: CT chest abdomen pelvis: Large cecal and ascending colonic mass felt to reflect malignancy until proven otherwise with surrounding stranding and fluid as well as adenopathy indicating regional spread no definitive evidence of metastatic disease to the liver or to the chest, urinary bladder cystitis Echocardiogram: Ejection fraction 55-60%, mild right ventricular dilatation, small pericardial effusion Patient seen and examined at bedside. He reports that his abdominal pain has been well-controlled, he isn't passing gas and that seems to be decreasing his pain. He is not yet hungry to eat more. He denies any lightheadedness or dizziness. Vital signs reviewed General: nontoxic, mild distress due to pain, appears at stated age Cardiovascular: S1S2 reg, no murmur, positive posterior tibial pulse bilateral, Lungs: Decreased bs bilateral, no rhonchi, no rales , no accessory muscle use Abdominal: NPPT, no organomegally Ext: no gross muscle atrophy, no edema b/l lower extremities, no contractures Neuro: CN II-XI grossly intact, no focal neuro deficits Psych: Alert, oriented, appropriate affect Assessment/plan: Large Cecal and ascending colonic mass s/p ileocolectomy, small bowel ressection and partial omentectomy on 11/30/22. -General surgery note reviewed: Continue with clear liquid diet, increase activity. - await pathology -Outpatient follow-up with oncology, elevated CEA Hyponatremia, undetermined etiology - stop IVF -Check urine and serum osmolality -Consult nephrology: Consult note reviewed which agreed with discontinuation of IV fluids, encourage oral intake, B/l LE edema, due to hypoalbuminemia -Suspect that edema is due to poor nutritional status. - Echo with preserved EF, Liver US without cirrhosis Anemia, Iron deficiency thrombocytosis, resolved - Iv Iron X 3 doses completed -Status post 3 units of packed red blood cells and 1 unit of cryo- - follow CBC Nicotine dependency - nicotine replacement - cessation Alcohol Dependency - CIWA with ativan - Thiamine 100 gm daily and folic acid 1 mg daily. Hypotension, resolved Imaging: Chest x-ray reviewed by myself and shows no acute assess. Data Review: Vital signs reviewed. Temperature 97.7, pulse 76, respirations 17, blood pressure 128/87, O2 sat 97% on room air Labs reviewed and remarkable for hemoglobin 10.5 (yesterday 11.1,), sodium 128, BUN 8, creatinine 0.65 Pathology-pending DVT prophylaxis: Heparin Anticipated discharge date: Pending Clinical Course Anticipated discharge place: Pending Clinical Course This dictation was prepared using [employer] voice recognition software. Though every attempt is made to correct errors during dictation some may still exist. Objective - Vital Signs Vital signs: Vital Signs Temp 98.2 F 12/03/22 11:46 Pulse 57 L 12/03/22 11:46 Resp 17 12/03/22 11:46 BP 142/92 12/03/22 11:46 Pulse Ox 95 12/03/22 11:46 FiO2 Intake & Output 12/02/22 12/03/22 12/03/22 18:59 06:59 18:59 Intake Total 480 240 Output Total 650 450 Balance -170 -210 Weight 62.1 kg Intake: Oral 480 240 Output: Urine 650 450 Other: Voiding Method Urinal Urinal Urinal # Voids 2 - Labs CBC & Chem 7: 12/03/22 04:38 12/03/22 04:38 Labs: Abnormal Lab Results - Last 24 Hours (Table) 12/03/22 12/03/22 12/03/22 Range/Units 04:38 04:38 04:38 Hgb 10.5 L (13.0-17.5) gm/dL Hct 34.2 L (39.0-53.0) % MCV 76.8 L (80.0-100.0) fL MCH 23.5 L (25.0-35.0) pg MCHC 30.6 L (31.0-37.0) g/dL RDW 21.6 H (11.5-15.5) % Sodium 128 L (137-145) mmol/L BUN 8 L (9-20) mg/dL Creatinine 0.65 L (0.66-1.25) mg/dL Osmolality 273 L (280-301) mosm/kg Calcium 7.6 L (8.4-10.2) mg/dL
[2022-12-03] MEDS: LACTATED RINGERS 1,000 ML IV SCH (16:38)
[2022-12-03 17:19] LABS: African American GFR (CKD) >90 (>60 ml/min/1.73 sqM); Anion Gap 4 mmol/L; Blood Urea Nitrogen 7 mg/dL (9-20); Calcium 7.5 mg/dL (8.4-10.2); Carbon Dioxide 26 mmol/L (22-30); Chloride 100 mmol/L (98-107); Glucose 98 mg/dL (74-99); Non-African American GFR(CKD) >90 (>60 ml/min/1.73 sqM); Sodium 130 mmol/L (137-145)
[2022-12-04] MEDS: HYDROmorphone 1 MG/ML 1 ML SYRINGE IVP PRN (04:09)
[2022-12-04 08:13] LABS: Anisocytosis Moderate; HCT 34.9 % (39.0-53.0); HGB 11.1 gm/dL (13.0-17.5); Hypochromasia Moderate; MCH 24.8 pg (25.0-35.0); MCHC 31.8 g/dL (31.0-37.0); MCV 77.9 fL (80.0-100.0); Mean Platelet Volume 6.8; Microcytosis Moderate; Platelet Count 450 k/uL (150-450); RBC 4.49 m/uL (4.30-5.90); RDW 22.3 % (11.5-15.5); WBC 4.9 k/uL (3.8-10.6)
[2022-12-04 08:35] LABS: African American GFR (CKD) >90 (>60 ml/min/1.73 sqM); Anion Gap 2 mmol/L; Blood Urea Nitrogen 7 mg/dL (9-20); Calcium 7.4 mg/dL (8.4-10.2); Carbon Dioxide 28 mmol/L (22-30); Chloride 100 mmol/L (98-107); Glucose 84 mg/dL (74-99); Non-African American GFR(CKD) >90 (>60 ml/min/1.73 sqM); Potassium 3.9 mmol/L (3.5-5.1); Sodium 130 mmol/L (137-145)
--- NOTE | 2022-12-04 08:51 | P.PN ---
Subjective Patient is seen for follow-up for hyponatremia. Urine osmolality is 319. IV fluids were discontinued yesterday. Serum sodium is staying at 130. Chest x-ray did not show any pulmonary vascular congestion. No significant complaints today. Objective - Vital Signs Vital signs: Vital Signs Temp 97.6 F 12/04/22 04:07 Pulse 51 L 12/04/22 04:07 Resp 17 12/04/22 04:07 BP 132/89 12/04/22 04:07 Pulse Ox 95 12/04/22 04:07 FiO2 Intake & Output 12/03/22 12/04/22 12/04/22 18:59 06:59 18:59 Output Total 650 250 300 Balance -650 -250 -300 Output: Urine 650 250 300 Other: Voiding Method Urinal Urinal # Voids 1 - Exam Awake, comfortable, no acute distress Examination of the heart S1 and S2 Examination of the lungs bilateral breath sounds are heard Abdomen is soft nontender Examination lower extremity shows no significant edema CARBONATOR exam grossly intact - Labs CBC & Chem 7: 12/04/22 07:50 12/04/22 07:50 Labs: Abnormal Lab Results - Last 24 Hours (Table) 12/03/22 12/03/22 12/04/22 Range/Units 04:38 16:19 07:50 Hgb (13.0-17.5) gm/dL Hct (39.0-53.0) % MCV (80.0-100.0) fL MCH (25.0-35.0) pg RDW (11.5-15.5) % Sodium 130 L 130 L (137-145) mmol/L BUN 7 L 7 L (9-20) mg/dL Creatinine 0.65 L (0.66-1.25) mg/dL Osmolality 273 L (280-301) mosm/kg Calcium 7.5 L 7.4 L (8.4-10.2) mg/dL 12/04/22 Range/Units 07:50 Hgb 11.1 L (13.0-17.5) gm/dL Hct 34.9 L (39.0-53.0) % MCV 77.9 L (80.0-100.0) fL MCH 24.8 L (25.0-35.0) pg RDW 22.3 H (11.5-15.5) % Sodium (137-145) mmol/L BUN (9-20) mg/dL Creatinine (0.66-1.25) mg/dL Osmolality (280-301) mosm/kg Calcium (8.4-10.2) mg/dL Assessment and Plan Assessment: 1. Hyponatremia appears euvolemic. Agree with discontinuation of IV fluids. Urine osmolality at 319 . Patient is advised to increase oral intake particularly protein when cleared by surgery. Also could be possibly related to NSAIDs. 2. Colonic mass status post ileocolectomy small bowel resection and partial omentectomy, pathology is pending 3. History of EtOH abuse 4. Hyperkalemia most likely associated with elevated blood sugar which was noted to be 266 and NSAIDs. potassium improved with improvement in blood sugar. No urine retention was noted. 5. Bilateral lower extremity edema possibly related to hypoalbuminemia, eje ction fraction is preserved on echocardiogram. UA shows trace protein. Edema is worsened with use of NSAIDs however we may continue the Motrin if patient needs it for pain control. Consider decreasing dose. Plan: Continue off of IV fluids Would encourage increased protein intake as tolerated once patient is allowed to eat. Consider decreasing dose of ibuprofen
[2022-12-04] MEDS ORDERED: IBUPROFEN 200 MG TAB PO PRN (08:58)
[2022-12-04] MEDS ORDERED: IBUPROFEN 200 MG TAB PO SCH (09:00)
[2022-12-04] MEDS: HYDROcodone/APAP 7.5-325MG 1 EACH TAB PO PRN ×3 (09:05→23:33)
[2022-12-04] MEDS: NICOTINE 21MG/24HR PATCH TRANSDERM SCH (09:06)
[2022-12-04] MEDS: FOLIC ACID 1 MG TAB PO SCH (09:06)
[2022-12-04] MEDS: FAMOTIDINE 20 MG/2 ML VIAL IV SCH ×2 (09:06→21:44)
[2022-12-04] MEDS: PIPERACILLIN-TAZOBACTAM 3.375 GM in SODIUM CHLORIDE 0.9% 100 ML IVPB SCH ×3 (09:06→23:30)
[2022-12-04] MEDS: ALVIMOPAN 12 MG CAPSULE PO SCH ×2 (09:06→21:45)
[2022-12-04] MEDS: HEPARIN SODIUM,PORCINE/PF 5,000 UNIT/0.5 ML SYRINGE SQ SCH ×3 (09:06→23:26)
[2022-12-04] MEDS: THIAMINE 100 MG TAB PO SCH (09:06)
--- NOTE | 2022-12-04 09:49 | P.PN ---
Subjective Progress Note Date: 12/04/22 Principal diagnosis: Colon cancer Patient doing about the same today. Mild soreness. Describes mild bloating. No vomiting but mildly nauseous. He is having flatus. He says he is having more flatus than before. No bowel movement. He is afebrile. White blood cell: Normal. Objective - Vital Signs Vital signs: Vital Signs Temp 97.6 F 12/04/22 08:42 Pulse 51 L 12/04/22 08:42 Resp 17 12/04/22 08:42 BP 144/90 12/04/22 08:42 Pulse Ox 97 12/04/22 08:42 FiO2 Intake & Output 12/03/22 12/04/22 12/04/22 18:59 06:59 18:59 Output Total 650 250 300 Balance -650 -250 -300 Output: Urine 650 250 300 Other: Voiding Method Urinal Urinal Urinal # Voids 1 - Exam Abdomen: Soft, mild distention, minimal tenderness, incision clean and dry - Labs CBC & Chem 7: 12/04/22 07:50 12/04/22 07:50 Labs: Abnormal Lab Results - Last 24 Hours (Table) 12/03/22 12/04/22 12/04/22 Range/Units 16:19 07:50 07:50 Hgb 11.1 L (13.0-17.5) gm/dL Hct 34.9 L (39.0-53.0) % MCV 77.9 L (80.0-100.0) fL MCH 24.8 L (25.0-35.0) pg RDW 22.3 H (11.5-15.5) % Sodium 130 L 130 L (137-145) mmol/L BUN 7 L 7 L (9-20) mg/dL Creatinine 0.65 L (0.66-1.25) mg/dL Calcium 7.5 L 7.4 L (8.4-10.2) mg/dL Assessment and Plan (1) Colonic mass Narrative/Plan: Patient with postoperative ileus. Continue clear liquids for now. Ambulate. Will follow. Current Visit: Yes Status: Acute Priority: High Code(s): K63.89 - OTHER SPECIFIED DISEASES OF INTESTINE SNOMED Code(s): 993788047
[2022-12-04] MEDS: ACETAMINOPHEN TAB 325 MG TAB PO PRN (13:43)
[2022-12-04] MEDS: LACTATED RINGERS 1,000 ML IV SCH (15:57)
--- NOTE | 2022-12-04 16:39 | P.PN ---
Subjective Progress Note Date: 12/04/22 Patient is a 62-year-old male with no known past medical history who presented to the emergency department with complaints of lower extremity swelling. On arrival to the ER his vital signs were within normal limits. Laboratory analysis was remarkable for hemoglobin 8.5, hematocrit 27.4, platelets 490, sodium 132, glucose 107, calcium 7.8, alkaline phosphatase 128, total bilirubin 6, albumin 2.8. BNP was elevated at 1470. Chest x-ray showed no acute process. In the ER he was given a dose of Lasix. Arrangements were made for admission. He was seen by cardiology and underwent echocardiogram which showed preserved systolic function. Liver ultrasound was completed with no signs of cirrhosis but did show gallbladder sludge. Patient subsequently underwent CT chest abdomen pelvis which showed cecal mass with mass in the ascending colon and lymphadenopathy. General surgery consulted. Patient was given colon prep and did not have any bowel movements. He was taken for ileocolectomy, small bowel ressection and partial omentectomy on 11/30/22. He continued to do well post-op but did struggle with some hyperkalemia and hyponatremia. Nephrology was consulted. His urine sodium was 316 Imaging: CT chest abdomen pelvis: Large cecal and ascending colonic mass felt to reflect malignancy until proven otherwise with surrounding stranding and fluid as well as adenopathy indicating regional spread no definitive evidence of metastatic disease to the liver or to the chest, urinary bladder cystitis Echocardiogram: Ejection fraction 55-60%, mild right ventricular dilatation, sm all pericardial effusion Patient seen and examined at bedside. He denies any complaints currently. He is passing gas but still has not had a bowel movement. He is requesting to eat and he says he cannot have a bowel movement if we don't give him food. Discussed with nursing. Patient has not been out of better sitting in chair. They did find him a banana peel. Vital signs reviewed General: nontoxic, mild distress due to pain, appears at stated age Cardiovascular: S1S2 reg, no murmur, positive posterior tibial pulse bilateral, Lungs: Decreased bs bilateral, no rhonchi, no rales , no accessory muscle use Abdominal: NPPT, no organomegally Ext: no gross muscle atrophy, no edema b/l lower extremities, no contractures Neuro: CN II-XI grossly intact, no focal neuro deficits Psych: Alert, oriented, appropriate affect Assessment/plan: Large Cecal and ascending colonic mass s/p ileocolectomy, small bowel ressection and partial omentectomy on 11/30/22. Post-op ileus --Surgery not reviewed: Postoperative ileus. Continue clear liquid diet - await pathology -Outpatient follow-up with oncology, elevated CEA - encourage OOB with meals and increase ambulation Hyponatremia, undetermined etiology - suspect portion of decreased solute intake vs SIADH -Nephrology note reviewed: Continue off fluids, increase protein intake. Consider decreased dose of ibuprofen. - off advil B/l LE edema, due to hypoalbuminemia -Suspect that edema is due to poor nutritional status. - Echo with preserved EF, Liver US without cirrhosis Anemia, Iron deficiency thrombocytosis, resolved - Iv Iron X 3 doses completed -Status post 3 units of packed red blood cells and 1 unit of cryo- - follow CBC Nicotine dependency - nicotine replacement - cessation Alcohol Dependency - CIWA with ativan - Thiamine 100 gm daily and folic acid 1 mg daily. Hypotension, resolved Imaging: None new Data Review: Vitals reviewed after 97.6, pulse 51, respirations 17, blood pressure 144/90, O2 sat 97% on room air Labs reviewed remarkable for hemoglobin 11.1, sodium 130 Pathology-pending DVT prophylaxis: Heparin Anticipated discharge date: Pending Clinical Course Anticipated discharge place: Pending Clinical Course This dictation was prepared using [employer] voice recognition software. Though every attempt is made to correct errors during dictation some may still exist. Objective - Vital Signs Vital signs: Vital Signs Temp 97.5 F L 12/04/22 15:55 Pulse 61 12/04/22 15:55 Resp 17 12/04/22 15:55 BP 131/86 12/04/22 15:55 Pulse Ox 98 12/04/22 15:55 FiO2 Intake & Output 12/03/22 12/04/22 12/04/22 18:59 06:59 18:59 Intake Total 237 Output Total 650 250 301 Balance -650 -250 -64 Intake: Oral 237 Output: Urine 650 250 301 Other: Voiding Method Urinal Urinal Urinal # Voids 1 # Bowel Movements 1 - Labs CBC & Chem 7: 12/04/22 07:50 12/04/22 07:50 Labs: Abnormal Lab Results - Last 24 Hours (Table) 12/03/22 12/04/22 12/04/22 Range/Units 16:19 07:50 07:50 Hgb 11.1 L (13.0-17.5) gm/dL Hct 34.9 L (39.0-53.0) % MCV 77.9 L (80.0-100.0) fL MCH 24.8 L (25.0-35.0) pg RDW 22.3 H (11.5-15.5) % Sodium 130 L 130 L (137-145) mmol/L BUN 7 L 7 L (9-20) mg/dL Creatinine 0.65 L (0.66-1.25) mg/dL Calcium 7.5 L 7.4 L (8.4-10.2) mg/dL
[2022-12-05] MEDS: PIPERACILLIN-TAZOBACTAM 3.375 GM in SODIUM CHLORIDE 0.9% 100 ML IVPB SCH ×3 (07:50→23:55)
[2022-12-05] MEDS: HEPARIN SODIUM,PORCINE/PF 5,000 UNIT/0.5 ML SYRINGE SQ SCH ×3 (07:50→23:56)
[2022-12-05] MEDS: FOLIC ACID 1 MG TAB PO SCH (07:51)
[2022-12-05] MEDS: NICOTINE 21MG/24HR PATCH TRANSDERM SCH (07:51)
[2022-12-05] MEDS: THIAMINE 100 MG TAB PO SCH (07:51)
[2022-12-05] MEDS: ALVIMOPAN 12 MG CAPSULE PO SCH ×2 (07:51→20:52)
[2022-12-05] MEDS: FAMOTIDINE 20 MG/2 ML VIAL IV SCH ×2 (07:51→20:52)
--- NOTE | 2022-12-05 10:30 | P.PN ---
Subjective Progress Note Date: 12/05/22 Principal diagnosis: Colon cancer Patient has some nausea today. No vomiting. Still passing flatus. Feels more bloated. Objective - Vital Signs Vital signs: Vital Signs Temp 98.2 F 12/05/22 08:00 Pulse 54 L 12/05/22 08:00 Resp 18 12/05/22 08:00 BP 135/91 12/05/22 08:00 Pulse Ox 98 12/05/22 09:13 FiO2 Intake & Output 12/04/22 12/05/22 12/05/22 18:59 06:59 18:59 Intake Total 474 Output Total 301 850 Balance 173 -850 Intake: Oral 474 Output: Urine 301 850 Other: Voiding Method Urinal Urinal Urinal # Bowel Movements 1 - Exam Abdomen: Soft, more distended than yesterday, mild diffuse tenderness, incision clean and dry - Labs CBC & Chem 7: 12/04/22 07:50 12/04/22 07:50 Assessment and Plan (1) Colonic mass Narrative/Plan: 62-year-old male with ileus following right colectomy. Keep nothing by mouth. Discussed nasogastric tube with patient. He is refusing at this time. Continue IV hydration Current Visit: Yes Status: Acute Priority: High Code(s): K63.89 - OTHER SPECIFIED DISEASES OF INTESTINE SNOMED Code(s): 369297985
[2022-12-05 10:53] LABS: Anisocytosis Moderate; HCT 34.8 % (39.0-53.0); Hypochromasia Moderate; MCH 24.6 pg (25.0-35.0); MCHC 31.5 g/dL (31.0-37.0); MCV 78.1 fL (80.0-100.0); Mean Platelet Volume 6.7; Microcytosis Moderate; Platelet Count 441 k/uL (150-450); RBC 4.46 m/uL (4.30-5.90); RDW 22.6 % (11.5-15.5); WBC 5.1 k/uL (3.8-10.6)
[2022-12-05 11:03] LABS: African American GFR (CKD) >90 (>60 ml/min/1.73 sqM); Anion Gap 4 mmol/L; Blood Urea Nitrogen 5 mg/dL (9-20); Calcium 7.6 mg/dL (8.4-10.2); Carbon Dioxide 26 mmol/L (22-30); Chloride 100 mmol/L (98-107); Glucose 93 mg/dL (74-99); Non-African American GFR(CKD) >90 (>60 ml/min/1.73 sqM); Potassium 4.1 mmol/L (3.5-5.1); Sodium 130 mmol/L (137-145)
--- NOTE | 2022-12-05 14:43 | P.PN ---
Subjective Progress Note Date: 12/05/22 (delayed charting seen at 1045) Patient is a 62-year-old male with no known past medical history who presented to the emergency department with complaints of lower extremity swelling. On arrival to the ER his vital signs were within normal limits. Laboratory analysis was remarkable for hemoglobin 8.5, hematocrit 27.4, platelets 490, sodium 132, glucose 107, calcium 7.8, alkaline phosphatase 128, total bilirubin 6, albumin 2.8. BNP was elevated at 1470. Chest x-ray showed no acute process. In the ER he was given a dose of Lasix. Arrangements were made for admission. He was seen by cardiology and underwent echocardiogram which showed preserved systolic function. Liver ultrasound was completed with no signs of cirrhosis but did show gallbladder sludge. Patient subsequently underwent CT chest abdomen pelvis which showed cecal mass with mass in the ascending colon and lym phadenopathy. General surgery consulted. Patient was given colon prep and did not have any bowel movements. He was taken for ileocolectomy, small bowel ressection and partial omentectomy on 11/30/22. He continued to do well post-op but did struggle with some hyperkalemia and hyponatremia. Nephrology was consulted. His urine sodium was 316 Imaging: CT chest abdomen pelvis: Large cecal and ascending colonic mass felt to reflect malignancy until proven otherwise with surrounding stranding and fluid as well as adenopathy indicating regional spread no definitive evidence of metastatic disease to the liver or to the chest, urinary bladder cystitis Echocardiogram: Ejection fraction 55-60%, mild right ventricular dilatation, small pericardial effusion Patient seen and examined at bedside today. He denies any increased bloating, still passing flatus but no bowel movement. Denies any chest pain or shortness of breath. It appears very disengaged. I again encouraged him to increase ambulation. Vital signs reviewed General: nontoxic, mild distress due to pain, appears at stated age Cardiovascular: S1S2 reg, no murmur, positive posterior tibial pulse bilateral, Lungs: Decreased bs bilateral, no rhonchi, no rales , no accessory muscle use Abdominal: NPPT, no organomegally, + distended Ext: no gross muscle atrophy, no edema b/l lower extremities, no contractures Neuro: CN II-XI grossly intact, no focal neuro deficits Psych: Alert, oriented, appropriate affect Assessment/plan: Large Cecal and ascending colonic mass s/p ileocolectomy, small bowel ressection and partial omentectomy on 11/30/22. Post-op ileus -Gen. surgery note reviewed. Nothing by mouth, possible nasogastric tube the patient refused. - await pathology -Outpatient follow-up with oncology, elevated CEA - encourage OOB with meals and increase ambulation Hyponatremia, undetermined etiology - suspect portion of decreased solute intake vs SIADH -Await further nephrology recommendations. -With patient being nothing by mouth Will start low-dose IV fluids. B/l LE edema, due to hypoalbuminemia -Suspect that edema is due to poor nutritional status. - Echo with preserved EF, Liver US without cirrhosis Anemia, Iron deficiency thrombocytosis, resolved - Iv Iron X 3 doses completed -Status post 3 units of packed red blood cells and 1 unit of cryo- - follow CBC Nicotine dependency - nicotine replacement - cessation Alcohol Dependency - Thiamine 100 gm daily and folic acid 1 mg daily. Hypotension, resolved Imaging: None new Data Review: Vitals reviewed-temperature 98.2, pulse 64, respirations 18, blood pressure 135/91, O2 sat 97% on room air Labs reviewed for hemoglobin of 11, sodium 130 Pathology-pending DVT prophylaxis: Heparin Anticipated discharge date: Pending Clinical Course Anticipated discharge place: Pending Clinical Course This dictation was prepared using [employer] voice recognition software. Though every attempt is made to correct errors during dictation some may still exist. Objective - Vital Signs Vital signs: Vital Signs Temp 98.2 F 12/05/22 11:37 Pulse 52 L 12/05/22 11:37 Resp 18 12/05/22 11:39 BP 132/85 12/05/22 11:37 Pulse Ox 98 12/05/22 11:37 FiO2 Intake & Output 12/04/22 12/05/22 12/05/22 18:59 06:59 18:59 Intake Total 474 Output Total 301 850 Balance 173 -850 Weight 62.1 kg Intake: Oral 474 Output: Urine 301 850 Other: Voiding Method Urinal Urinal Urinal # Bowel Movements 1 - Labs CBC & Chem 7: 12/05/22 10:12 12/05/22 10:12 Labs: Abnormal Lab Results - Last 24 Hours (Table) 12/05/22 12/05/22 Range/Units 10:12 10:12 Hgb 11.0 L (13.0-17.5) gm/dL Hct 34.8 L (39.0-53.0) % MCV 78.1 L (80.0-100.0) fL MCH 24.6 L (25.0-35.0) pg RDW 22.6 H (11.5-15.5) % Sodium 130 L (137-145) mmol/L BUN 5 L (9-20) mg/dL Calcium 7.6 L (8.4-10.2) mg/dL
[2022-12-05] MEDS: LACTATED RINGERS 1,000 ML IV SCH (15:08)
[2022-12-06 07:54] LABS: Ionized Calcium 4.9 mg/dL (4.5-5.3)
[2022-12-06 08:00] LABS: ALT 10 U/L (4-49); AST 18 U/L (17-59); African American GFR (CKD) >90 (>60 ml/min/1.73 sqM); Albumin 2.1 g/dL (3.5-5.0); Alkaline Phosphatase 98 U/L (38-126); Anion Gap 3 mmol/L; Blood Urea Nitrogen 6 mg/dL (9-20); Calcium 7.6 mg/dL (8.4-10.2); Carbon Dioxide 27 mmol/L (22-30); Chloride 100 mmol/L (98-107); Glucose 74 mg/dL (74-99); Non-African American GFR(CKD) >90 (>60 ml/min/1.73 sqM); Potassium 3.9 mmol/L (3.5-5.1); Sodium 130 mmol/L (137-145); Total Bilirubin 0.4 mg/dL (0.2-1.3); Total Protein 4.6 g/dL (6.3-8.2)
[2022-12-06 08:03] LABS: Magnesium 2.1 mg/dL (1.6-2.3); Phosphorus 4.1 mg/dL (2.5-4.5)
[2022-12-06] MEDS: NICOTINE 21MG/24HR PATCH TRANSDERM SCH (09:29)
[2022-12-06] MEDS: FAMOTIDINE 20 MG/2 ML VIAL IV SCH ×2 (09:29→20:18)
[2022-12-06] MEDS: HEPARIN SODIUM,PORCINE/PF 5,000 UNIT/0.5 ML SYRINGE SQ SCH ×3 (09:30→23:26)
[2022-12-06] MEDS: PIPERACILLIN-TAZOBACTAM 3.375 GM in SODIUM CHLORIDE 0.9% 100 ML IVPB SCH ×3 (09:30→23:26)
--- NOTE | 2022-12-06 09:33 | P.PN ---
Subjective Progress Note Date: 12/06/22 Principal diagnosis: Colon cancer Patient says he is doing better today. Denies nausea or vomiting. He is hungry. He is passing large volumes of flatus. Says he feels less bloated. Wolfe to eat. Labs are pending. Objective - Vital Signs Vital signs: Vital Signs Temp 98 F 12/05/22 15:28 Pulse 49 L 12/06/22 04:00 Resp 16 12/06/22 04:00 BP 154/90 12/06/22 04:00 Pulse Ox 90 L 12/06/22 08:40 FiO2 Intake & Output 12/05/22 12/06/22 12/06/22 18:59 06:59 18:59 Output Total 325 Balance -325 Weight 62.1 kg 64 kg Output: Urine 325 Other: Voiding Method Urinal Urinal - Exam Abdomen: Soft, mild distention, mild tenderness, incision clean and dry - Labs CBC & Chem 7: 12/05/22 10:12 12/06/22 07:03 Labs: Abnormal Lab Results - Last 24 Hours (Table) 12/05/22 12/05/22 12/06/22 Range/Units 10:12 10:12 07:03 Hgb 11.0 L (13.0-17.5) gm/dL Hct 34.8 L (39.0-53.0) % MCV 78.1 L (80.0-100.0) fL MCH 24.6 L (25.0-35.0) pg RDW 22.6 H (11.5-15.5) % Sodium 130 L 130 L (137-145) mmol/L BUN 5 L 6 L (9-20) mg/dL Calcium 7.6 L 7.6 L (8.4-10.2) mg/dL Total Protein 4.6 L (6.3-8.2) g/dL Albumin 2.1 L (3.5-5.0) g/dL Assessment and Plan (1) Colonic mass Narrative/Plan: Patient seems to doing better today. Begin clear liquids. May advance to full to tolerates. Current Visit: Yes Status: Acute Priority: High Code(s): K63.89 - OTHER SPECIFIED DISEASES OF INTESTINE SNOMED Code(s): 243684897
--- NOTE | 2022-12-06 10:33 | P.PN ---
Subjective Progress Note Date: 12/06/22 Hospital Course: Patient is a 62-year-old male with no known past medical history who presented to the emergency department with complaints of lower extremity swelling. On arrival to the ER his vital signs were within normal limits. Laboratory analysis was remarkable for hemoglobin 8.5, hematocrit 27.4, platelets 490, sodium 132, glucose 107, calcium 7.8, alkaline phosphatase 128, total bilirubin 6, albumin 2.8. BNP was elevated at 1470. Chest x-ray showed no acute process. In the ER he was given a dose of Lasix. Arrangements were made for admission. He was seen by cardiology and underwent echocardiogram which showed preserved systolic function. Liver ultrasound was completed with no signs of cirrhosis but did show gallbladder sludge. Patient subsequently underwent CT chest abdomen pelvis which showed cecal mass with mass in the ascending colon and lymphadenopathy. General surgery consulted. Patient was given colon prep and did not have any bowel movements. He was taken for ileocolectomy, small bowel ressection and partial omentectomy on 11/30/22. He continued to do well post-op but did struggle with some hyperkalemia and hyponatremia. Nephrology was consulted. His urine sodium was 316 Subjective: Patient seen and examined at bedside. No acute events overnight. Passing flatness, no bowel movements, remains nothing by mouth. Pertinent positives and negatives as discussed above, a complete review of systems was performed and all other systems are negative. Vitals Signs Reviewed. General: nontoxic, mild distress due to pain, appears at stated age Cardiovascular: S1S2 reg, no murmur, positive posterior tibial pulse bilateral, Lungs: Decreased bs bilateral, no rhonchi, no rales , no accessory muscle use Abdominal: NPPT, no organomegally, + distended Ext: no gross muscle atrophy, no edema b/l lower extremities, no contractures Neuro: CN II-XI grossly intact, no focal neuro deficits Psych: Alert, oriented, appropriate affect Data Reviewed Today: Pertinent Labs: Sodium 1:30, potassium 3.9, albumin 2.1, creatinine 0.7 Imaging: No new imaging today Assessment and Plan: Large Cecal and ascending colonic mass s/p ileocolectomy, small bowel ressection and partial omentectomy on 11/30/22. Post-op ileus -Gen. surgery note reviewed, started clear liquids today -Also on Entereg -Also on IV Zosyn - await pathology -Outpatient follow-up with oncology, elevated CEA - encourage OOB with meals and increase ambulation Hyponatremia, euvolemic - Nephrology following, only on 50 mL of LR per hour, can decrease when patient able to tolerate oral intake B/l LE edema, due to hypoalbuminemia -Suspect that edema is due to poor nutritional status. - Echo with preserved EF, Liver US without cirrhosis Anemia, Iron deficiency thrombocytosis, resolved - Iv Iron X 3 doses completed -Status post 3 units of packed red blood cells and 1 unit of cryo- - follow CBC Nicotine dependency - nicotine replacement - cessation Alcohol Dependency - Thiamine 100 gm daily and folic acid 1 mg daily. Hypotension, resolved DVT ppx: Heparin subcu Code status: Full code Anticipated discharge place: Subacute rehab Anticipated discharge time: Pending clinical course Objective - Vital Signs Vital signs: Vital Signs Temp 97.5 F L 12/06/22 08:00 Pulse 68 12/06/22 08:00 Resp 18 12/06/22 08:00 BP 128/96 12/06/22 08:00 Pulse Ox 90 L 12/06/22 08:40 FiO2 Intake & Output 12/05/22 12/06/22 12/06/22 18:59 06:59 18:59 Output Total 325 325 Balance -325 -325 Weight 62.1 kg 64 kg Output: Urine 325 325 Other: Voiding Method Urinal Urinal Urinal # Voids 1 # Bowel Movements 1 - Labs CBC & Chem 7: 12/05/22 10:12 12/06/22 07:03 Labs: Abnormal Lab Results - Last 24 Hours (Table) 12/05/22 12/05/22 12/06/22 Range/Units 10:12 10:12 07:03 Hgb 11.0 L (13.0-17.5) gm/dL Hct 34.8 L (39.0-53.0) % MCV 78.1 L (80.0-100.0) fL MCH 24.6 L (25.0-35.0) pg RDW 22.6 H (11.5-15.5) % Sodium 130 L 130 L (137-145) mmol/L BUN 5 L 6 L (9-20) mg/dL Calcium 7.6 L 7.6 L (8.4-10.2) mg/dL Total Protein 4.6 L (6.3-8.2) g/dL Albumin 2.1 L (3.5-5.0) g/dL
--- NOTE | 2022-12-06 10:55 | P.PN ---
Subjective Patient is seen for follow-up for hyponatremia. Urine osmolality is 319. Off of IV fluids Serum sodium is staying at 130. Chest x-ray did not show any pulmonary vascular congestion. No significant complaints today. Objective - Vital Signs Vital signs: Vital Signs Temp 97.5 F L 12/06/22 08:00 Pulse 68 12/06/22 08:00 Resp 18 12/06/22 08:00 BP 128/96 12/06/22 08:00 Pulse Ox 90 L 12/06/22 08:40 FiO2 Intake & Output 12/05/22 12/06/22 12/06/22 18:59 06:59 18:59 Output Total 325 325 Balance -325 -325 Weight 62.1 kg 64 kg Output: Urine 325 325 Other: Voiding Method Urinal Urinal Urinal # Voids 1 # Bowel Movements 1 - Exam Awake, comfortable, no acute distress Examination of the heart S1 and S2 Examination of the lungs bilateral breath sounds are heard Abdomen is soft nontender Examination lower extremity shows no significant edema ENROLLED AGENT exam grossly intact - Labs CBC & Chem 7: 12/05/22 10:12 12/06/22 07:03 Labs: Abnormal Lab Results - Last 24 Hours (Table) 12/05/22 12/06/22 Range/Units 10:12 07:03 Sodium 130 L 130 L (137-145) mmol/L BUN 5 L 6 L (9-20) mg/dL Calcium 7.6 L 7.6 L (8.4-10.2) mg/dL Total Protein 4.6 L (6.3-8.2) g/dL Albumin 2.1 L (3.5-5.0) g/dL Assessment and Plan Assessment: 1. Hyponatremia appears euvolemic. Continue off of IV fluids. Urine osmolality at 319 . Patient is advised to increase oral intake particularly protein when cleared by surgery. Also could be possibly related to NSAIDs. 2. Colonic mass status post ileocolectomy small bowel resection and partial omentectomy, pathology is pending 3. History of EtOH abuse 4. Hyperkalemia most likely associated with elevated blood sugar which was noted to be 266 and NSAIDs. potassium improved with improvement in blood sugar. No urine retention was noted. 5. Bilateral lower extremity edema possibly related to hypoalbuminemia, ejection fraction is preserved on echocardiogram. UA shows trace protein. Edema is worsened with use of NSAIDs however we may continue the Motrin if patient needs it for pain control. Consider decreasing dose. Plan: Continue off of IV fluids Would encourage increased protein intake as tolerated once patient is allowed to eat. Continue off of NSAIDs
--- NOTE | 2022-12-06 10:57 | P.PN ---
Subjective Patient is seen for follow-up for hyponatremia. Urine osmolality is 319. Off of IV fluids Serum sodium is staying at 130. Chest x-ray did not show any pulmonary vascular congestion. No significant complaints today. Motrin has been discontinued Objective - Vital Signs Vital signs: Vital Signs Temp 97.5 F L 12/06/22 08:00 Pulse 68 12/06/22 08:00 Resp 18 12/06/22 08:00 BP 128/96 12/06/22 08:00 Pulse Ox 90 L 12/06/22 08:40 FiO2 Intake & Output 12/05/22 12/06/22 12/06/22 18:59 06:59 18:59 Output Total 325 325 Balance -325 -325 Weight 62.1 kg 64 kg Output: Urine 325 325 Other: Voiding Method Urinal Urinal Urinal # Voids 1 # Bowel Movements 1 - Exam Awake, comfortable, no acute distress Examination of the heart S1 and S2 Examination of the lungs bilateral breath sounds are heard Abdomen is soft nontender Examination lower extremity shows 1+ edema both feet RECREATION THERAPIST exam grossly intact - Labs CBC & Chem 7: 12/05/22 10:12 12/06/22 07:03 Labs: Abnormal Lab Results - Last 24 Hours (Table) 12/05/22 12/06/22 Range/Units 10:12 07:03 Sodium 130 L 130 L (137-145) mmol/L BUN 5 L 6 L (9-20) mg/dL Calcium 7.6 L 7.6 L (8.4-10.2) mg/dL Total Protein 4.6 L (6.3-8.2) g/dL Albumin 2.1 L (3.5-5.0) g/dL Assessment and Plan Assessment: 1. Hyponatremia, mildly hypervolemic today. Continue off of IV fluids. Urine osmolality at 319 . Patient is advised to increase oral intake particularly protein when cleared by surgery. Also could be possibly related to NSAIDs. 2. Colonic mass status post ileocolectomy small bowel resection and partial omentectomy, pathology is pending 3. History of EtOH abuse 4. Hyperkalemia most likely associated with elevated blood sugar which was noted to be 266 and NSAIDs. potassium improved with improvement in blood sugar. No urine retention was noted. 5. Bilateral lower extremity edema possibly related to hypoalbuminemia, ejection fraction is preserved on echocardiogram. UA shows trace protein. Edema is worsened with use of NSAIDs, now discontinued Plan: Continue off of IV fluids Continue off of NSAIDs Repeat sodium in a.m.
[2022-12-06] MEDS: FOLIC ACID 1 MG TAB PO SCH (11:07)
[2022-12-06] MEDS: THIAMINE 100 MG TAB PO SCH (11:07)
[2022-12-06] MEDS: ALVIMOPAN 12 MG CAPSULE PO SCH ×2 (11:08→20:18)
[2022-12-06] MEDS: LACTATED RINGERS 1,000 ML IV SCH (16:57)
[2022-12-07 09:29] VITALS: TEMP 97.4
[2022-12-07] MEDS: LACTATED RINGERS 1,000 ML IV SCH (09:35)
--- NOTE | 2022-12-07 09:35 | CDI ---
Documentation Clarification Form Date: 12/05/2022 04:12:00 PM From: Zahida Yanez RN, CCDS Admit Date: 11/30/2022 01:01:00 PM Patient Name: Franci Erickson Visit Number: [id number] Discharge Date: ATTENTION: The Clinical Documentation Specialists (CDI) and [facility] Coding Staff appreciate your assistance in clarifying documentation. Please respond to the clarification below the line at the bottom and electronically sign. The CDI & [facility] Coding staff will review the response and follow-up if needed. Please note: Queries are made part of the Legal Health Record. If you have any questions, please contact the author of this message via ITS. Dr. Demetrius Mcintosh Postop ileus is documented in your progress note starting on 12/04/22 and patient had Ileocolectomy, Small bowel resect on 11/30/22. Additional clarification is requested regarding the relationship, if any, that exists between the diagnosis and the procedure. Patients Admitting Diagnosis: Obstructing right colon mass Post-Operative Diagnosis: Obstructing right colon mass with involvement of small bowel Procedure performed: Ileocolectomy, Small bowel resection, Partial omentectomy History/Risk Factors: Daily alcohol use, Current every day smoker Clinical Indicators: 62 year-old male had Ileocolectomy, Small bowel resection, Partial omentectomy on 11/30/2022. 12/04 Surgery progress notes: Mild soreness. Describes mild bloating. No vomiting but mildly nauseous. He is having flatus No bowel movement. WBC normal. VS 144/90 51 17 97.6 97% RA Abdomen: soft, mild distention, minimal tenderness, incision clean and dry. Postoperative ileus. Treatment: 12/04 Continue clear liquids, ambulate, Monitor 12/05 NPO, Lactated Ringers @50 mls/hr. 12/05-12/06 12/06 Clear liquids What relationship, if any, exists between the diagnosis of Post-op ileus and the procedure? [ ] Post-op ileus is a complication of surgical procedure. [ X ] Post-op ileus is an expected outcome of the surgical procedure [ ] Post-op ileus is related to patients co-morbid condition(s) of [insert co- morbid dxs] & not a complication of the procedure. [ ] Other please specify ____ [ ] Unable to determine (Template Last Revised: August 2020) MTDD
[2022-12-07] MEDS: PIPERACILLIN-TAZOBACTAM 3.375 GM in SODIUM CHLORIDE 0.9% 100 ML IVPB SCH ×2 (10:04→17:39)
[2022-12-07] MEDS: THIAMINE 100 MG TAB PO SCH (10:05)
[2022-12-07] MEDS: HEPARIN SODIUM,PORCINE/PF 5,000 UNIT/0.5 ML SYRINGE SQ SCH ×2 (10:05→17:25)
[2022-12-07] MEDS: NICOTINE 21MG/24HR PATCH TRANSDERM SCH (10:05)
[2022-12-07] MEDS: ALVIMOPAN 12 MG CAPSULE PO SCH (10:05)
[2022-12-07] MEDS: FOLIC ACID 1 MG TAB PO SCH (10:05)
[2022-12-07] MEDS: FAMOTIDINE 20 MG/2 ML VIAL IV SCH (10:06)
[2022-12-07] MEDS: ACETAMINOPHEN TAB 325 MG TAB PO PRN (10:06)
[2022-12-07] MEDS ORDERED: FUROSEMIDE 10 MG/ML 2 ML VIAL IV ONE (11:42)
--- NOTE | 2022-12-07 11:42 | P.PN ---
Subjective Patient is seen for follow-up for hyponatremia. Urine osmolality is 319. Off of IV fluids Serum sodium is staying at 130. Chest x-ray did not show any pulmonary vascular congestion. No significant complaints today. Motrin has been discontinued. Tolerating oral intake. Objective - Vital Signs Vital signs: Vital Signs Temp 97.4 F L 12/07/22 08:00 Pulse 62 12/07/22 08:00 Resp 18 12/07/22 08:00 BP 131/91 12/07/22 08:00 Pulse Ox 97 12/07/22 08:00 FiO2 Intake & Output 12/06/22 12/07/22 12/07/22 18:59 06:59 18:59 Intake Total 0 10 Output Total 975 Balance -975 10 Intake: IV 10 Invasive Line 6 10 Oral 0 Output: Urine 975 Other: Voiding Method Urinal Urinal # Voids 1 # Bowel Movements 1 - Exam Awake, comfortable, no acute distress Examination of the heart S1 and S2 Examination of the lungs bilateral breath sounds are heard Abdomen is soft nontender Examination lower extremity shows 1+ edema both feet LABOR SERVICE REPRESENTATIVE exam grossly intact - Labs CBC & Chem 7: 12/05/22 10:12 12/06/22 07:03 Assessment and Plan Assessment: 1. Hyponatremia, mildly hypervolemic today. Continue off of IV fluids. Urine osmolality at 319 . Patient is advised to increase oral intake particularly protein when cleared by surgery. Also, possibly related to NSAIDs, now discontinued. 2. Colonic mass status post ileocolectomy small bowel resection and partial omentectomy, pathology is pending 3. History of EtOH abuse 4. Hyperkalemia most likely associated with elevated blood sugar which was noted to be 266 and NSAIDs. potassium improved with improvement in blood sugar. No urine retention was noted. 5. Bilateral lower extremity edema possibly related to hypoalbuminemia, ejection fraction is preserved on echocardiogram. UA shows trace protein. Edema is worsened with use of NSAIDs, now discontinued Plan: Lasix 20 mg IV 1 Continue to maintain adequate oral intake.
[2022-12-07 11:58] LABS: African American GFR (CKD) >90 (>60 ml/min/1.73 sqM); Anion Gap 5 mmol/L; Blood Urea Nitrogen 7 mg/dL (9-20); Calcium 7.5 mg/dL (8.4-10.2); Carbon Dioxide 27 mmol/L (22-30); Chloride 100 mmol/L (98-107); Glucose 67 mg/dL (74-99); Non-African American GFR(CKD) >90 (>60 ml/min/1.73 sqM); Phosphorus 3.8 mg/dL (2.5-4.5); Potassium 3.5 mmol/L (3.5-5.1); Sodium 132 mmol/L (137-145)
--- NOTE | 2022-12-07 11:59 | P.DS ---
Providers Date of admission: 11/30/22 13:01 Expected date of discharge: 12/07/22 Attending physician: Leander Newman MD Consults: 11/29/22 07:49 Consult Physician Routine Consulting Provider: Gurmeet Alva Consult Reason/Comments: Cecal and Colonic mass with lymphadenopathy Do you want consulting provider notified?: Yes 11/29/22 10:56 Consult Physician Routine Consulting Provider: Saurabh Beck Consult Reason/Comments: cecal and ascending colon mass Do you want consulting provider notified?: Already Contacted 12/03/22 08:15 Consult Physician Routine Consulting Provider: Candice Sosa Consult Reason/Comments: Hyponatremia Do you want consulting provider notified?: Yes Primary care physician: Stated None Hospital Course: Discharge Diagnosis: Large Cecal and ascending colonic mass s/p ileocolectomy, small bowel ressection and partial omentectomy on 11/30/22. Post-op ileus Hyponatremia Hypoalbuminemia Anasarca Iron deficiency anemia Thrombocytosis Nicotine dependency Alcohol dependency Hypotension Hospital Course: Patient is a 62-year-old male with no known past medical history who presented to the emergency department with complaints of lower extremity swelling. On arrival to the ER his vital signs were within normal limits. Laboratory analysis was remarkable for hemoglobin 8.5, hematocrit 27.4, platelets 490, sodium 132, glucose 107, calcium 7.8, alkaline phosphatase 128, total bilirubin 6, albumin 2.8. BNP was elevated at 1470. Chest x-ray showed no acute process. In the ER he was given a dose of Lasix. Arrangements were made for admission. He was seen by cardiology and underwent echocardiogram which showed preserved systolic function. Liver ultrasound was completed with no signs of cirrhosis but did show gallbladder sludge. Patient subsequently underwent CT chest abdomen pelvis which showed cecal mass with mass in the ascending colon and lymphadenopathy. General surgery consulted. He was taken for ileocolectomy, small bowel ressection and partial omentectomy on 11/30/22. He continued to do well post-op but did struggle with some hyperkalemia and hyponatremia. Nephrology was consulted. Hyponatremia is likely slightly hypervolemic. Was given IV Lasix. Stable at the time of discharge. Pathology still pending. Now having bowel movements. Patient also had an deficiency anemia, requiring 3 units of packed red blood cells, 1 unit of cryoprecipitate, and IV iron. At the time of discharge hemoglobin and stable. Patient will follow-up with oncology, general surgery, and nephrology. Patient seen and examined at bedside. Vital signs reviewed and stable. General: nontoxic, no distress, appears at stated age Derm: warm, dry, abdominal dressing clean, dry, intact Head: atraumatic, normocephalic, symmetric Eyes: EOMI, no lid lag, anicteric sclera Mouth: no lip lesion, mucus membranes moist Cardiovascular: S1S2 reg, no murmur Lungs: CTA bilateral, no rhonchi, no rales , no accessory muscle use Abdominal: soft, nontender to palpation, no guarding, no appreciable organomegaly Ext: no gross muscle atrophy, no edema, no contractures Neuro: CN II-XI grossly intact, no focal neuro deficits Psych: Alert, oriented, appropriate affect A total of 36 minutes of time were spent preparing this complex discharge summary. Patient was discharged on 12/07/22 at 11:25. Patient Condition at Discharge: Stable Plan - Discharge Summary Discharge Rx Participant: Yes New Discharge Prescriptions: New Folic Acid 1 mg PO DAILY #60 tab Acetaminophen Tab [Tylenol] 650 mg PO Q6HR PRN #60 tab PRN Reason: Mild Pain Or Fever > 100.5 Thiamine [Vitamin B-1] 100 mg PO DAILY #60 tab oxyCODONE HCL [OxyIR] 5 mg PO Q6H PRN 3 Days #12 tab PRN Reason: Pain Discharge Medication List oxyCODONE HCL [OxyIR] 5 mg PO Q6H PRN 3 Days #12 tab 12/02/22 [Rx] Acetaminophen Tab [Tylenol] 650 mg PO Q6HR PRN #60 tab 12/07/22 [Rx] Folic Acid 1 mg PO DAILY #60 tab 12/07/22 [Rx] Thiamine [Vitamin B-1] 100 mg PO DAILY #60 tab 12/07/22 [Rx] Follow up Appointment(s)/Referral(s): Candice Sosa MD [STAFF PHYSICIAN] - 1 Week Gurmeet Alva MD [STAFF PHYSICIAN] - 12/20/22 2:30 pm None,Stated [Primary Care Provider] - 1-2 days Saurabh Beck MD [STAFF PHYSICIAN] - 1 Week Patient Instructions/Handouts: How to Stop Smoking (DC), Abuse of Alcohol (DC) Activity/Diet/Wound Care/Special Instructions: No driving while taking OxyIR No lifting over 10 pounds You may shower. No soaking or tub baths for 2 weeks Very light activity until you are reevaluated at your follow up appointment with your surgeon Please see oncology and also PCP. You will need repeat blood work to check your sodium. Discharge/Stand Alone Forms: Who Do I Call?, Community Resources, Personal Janitorial Cleaner, Area PCPs Discharge Disposition: HOME SELF-CARE
--- NOTE | 2022-12-07 12:48 | P.PN ---
Subjective Progress Note Date: 12/07/22 CHIEF COMPLAINT: Obstructing right colon mass HISTORY OF PRESENT ILLNESS: Patient is status post ileocolectomy, small bowel resection and partial omentectomy on 11/30/22. Patient's pain is controlled. He has been having bowel movements. Stools have been liquidy. No blood in the stools. He is tolerating low fiber diet. Afebrile. Sodium 132 potassium 3.5 creatinine 0.72. Patient scheduled for discharge today. PHYSICAL EXAM: VITAL SIGNS: Reviewed. GENERAL: Well-developed in no acute distress. HEENT: No sclera icterus. Extraocular movements grossly intact. Moist buccal mucosa. Head is atraumatic, normocephalic. ABDOMEN: Nondistended. Nontender. Incisional dressing clean dry and intact. NEUROLOGIC: Alert and oriented. Cranial nerves II through XII grossly intact. ASSESSMENT: 1. Obstructing right colon mass with involvement of small bowel status post ileal colectomy, small bowel resection and partial omentectomy 2. History of Daily alcohol use PLAN: -Patient can be discharged from surgical standpoint with outpatient follow-up -Continue low fiber diet -GI prophylaxis pepcid and DVT prophylaxis subcu heparin Physician Fuselage Framer note has been reviewed by physician. Signing provider agrees with the documented findings, assessment, and plan of care. Objective - Vital Signs Vital signs: Vital Signs Temp 97.4 F L 12/07/22 08:00 Pulse 62 12/07/22 08:00 Resp 18 12/07/22 08:00 BP 131/91 12/07/22 08:00 Pulse Ox 97 12/07/22 08:00 FiO2 Intake & Output 12/06/22 12/07/22 12/07/22 18:59 06:59 18:59 Intake Total 0 10 Output Total 975 Balance -975 10 Intake: IV 10 Invasive Line 6 10 Oral 0 Output: Urine 975 Other: Voiding Method Urinal Urinal Urinal # Voids 1 # Bowel Movements 1 - Labs CBC & Chem 7: 12/05/22 10:12 12/07/22 11:07 Labs: Abnormal Lab Results - Last 24 Hours (Table) 12/07/22 Range/Units 11:07 Sodium 132 L (137-145) mmol/L BUN 7 L (9-20) mg/dL Glucose 67 L (74-99) mg/dL Calcium 7.5 L (8.4-10.2) mg/dL
[2022-12-07 13:57] VITALS: BP 144/90; PULSE 68; RESP 16
--- NOTE | 2022-12-07 16:03 | P.PN ---
Subjective Progress Note Date: 12/07/22 Principal diagnosis: colon mass at today's visit patient is resting comfortably in bed. Patient reports he is feeling okay today. Denies pain. No other reported complaints at this time Objective - Vital Signs Vital signs: Vital Signs Temp 97.4 F L 12/07/22 13:56 Pulse 68 12/07/22 13:56 Resp 16 12/07/22 13:56 BP 144/90 12/07/22 13:56 Pulse Ox 96 12/07/22 13:56 FiO2 Intake & Output 12/06/22 12/07/22 12/07/22 18:59 06:59 18:59 Intake Total 0 128 Output Total 975 Balance -975 128 Intake: IV 10 Invasive Line 6 10 Oral 0 118 Output: Urine 975 Other: Voiding Method Urinal Urinal Urinal # Voids 1 # Bowel Movements 1 - Constitutional General appearance: Present: no acute distress, thin - EENT Eyes: Present: anicteric sclerae, EOMI ENT: Present: hearing grossly normal - Respiratory Details: breathing even and unlabored - Cardiovascular Details: skin warm and dry - Integumentary Integumentary: Absent: cyanotic, pale - Neurologic Neurologic Comment(s): grossly intact - Musculoskeletal Musculoskeletal: Present: strength equal bilaterally - Psychiatric Psychiatric: Present: A&O x's 3, appropriate affect, intact judgment & insight - Labs CBC & Chem 7: 12/05/22 10:12 12/07/22 11:07 Labs: Abnormal Lab Results - Last 24 Hours (Table) 12/07/22 Range/Units 11:07 Sodium 132 L (137-145) mmol/L BUN 7 L (9-20) mg/dL Glucose 67 L (74-99) mg/dL Calcium 7.5 L (8.4-10.2) mg/dL Assessment and Plan (1) Colonic mass Current Visit: Yes Status: Acute Priority: High Code(s): K63.89 - OTHER SPECIFIED DISEASES OF INTESTINE SNOMED Code(s): 895303879 (2) Microcytic hypochromic anemia Current Visit: Yes Status: Acute Priority: High Code(s): D50.9 - IRON DEFICIENCY ANEMIA, UNSPECIFIED SNOMED Code(s): 48428821 Plan: Colon mass -Imaging suspicious for at least local regional malignancy -Pt reporting recent, unintentional wt loss -S/P Ileocolectomy, small bowel resection and partial omentectomy, path pending -CEA Elevated at 29.8 Microcytic, hypochromic anemia -Likely multifactorial including losses from this suspicious colon mass, poor diet secondary to EtOH -CBC, iron studies reviewed -Parenteral iron given -Hemoglobin stable, 11.0. Transfuse for hemoglobin less than 7
--- NOTE | 2022-12-13 11:29 | CDI ---
Documentation Clarification Form Date: 12/13/22 From: Monika James Admit Date: 11/30/2022 01:01:00 PM Patient Name: Franci Erickson Visit Number: [id number] Discharge Date: 12/07/2022 06:41:00 PM ATTENTION: The Clinical Documentation Specialists (CDI) and [facility] Coding Staff appreciate your assistance in clarifying documentation. Please respond to the clarification below the line at the bottom and electronically sign. The CDI & [facility] Coding staff will review the response and follow-up if needed. Please note: Queries are made part of the Legal Health Record. If you have any questions, please contact the author of this message via ITS. Dr. Wilber Lagunas, The final diagnosis of the pathology report states RIGHT COLON WITH TERMINAL ILEUM AND APPENDIX, RIGHT HEMICOLECTOMY: Invasive moderately differentiated colonicadenocarcinoma(see surgical pathologycancercase summary and comment). Tumorinvades through colonic wall and into adjacent adhesed/attached small bowel segment. All marginsnegative forcarcinoma. Coding guidelines do not allow coding professionals to code based on pathology results; therefore, clarification is requested. History/risk factors: Dailyalcohol use,Current every day smoker Clinical Indicators: Obstructingright colon mass Treatment: Ileocolectomy, Small bowel resection, Partialomentectomy Please clarify if you agree with the pathology report diagnosis of Invasive moderately differentiated colonicadenocarcinoma: [ x ] Yes [ ] No [ ] Other (please specify) [ ] Unable to determine MTDD
== END 2022-12-07 18:41 | disposition home or self-care (01) | DRG 329 ==
LOC: EC 19:47 → 3SCARD 11-28 02:21 → OBSVTOIN 11-30 13:01
PROVIDERS: ADMIT Internal Medicine; ATTEND Internal Medicine
PROC: 30233N1 Transfusion of Nonautologous Red Blood Cells into Peripheral Vein, Percutaneous Approach (ICD-10-PCS; 2022-11-29)
PROC: 30233M1 Transfusion of Nonautologous Plasma Cryoprecipitate into Peripheral Vein, Percutaneous Approach (ICD-10-PCS; 2022-11-30)
PROC: 0DBU0ZZ Excision of Omentum, Open Approach (ICD-10-PCS; principal; 2022-11-30 09:40)
PROC: 0DBB0ZZ Excision of Ileum, Open Approach (ICD-10-PCS; principal; 2022-11-30 09:40)
PROC: 0DTF0ZZ Resection of Right Large Intestine, Open Approach (ICD-10-PCS; principal; 2022-11-30 09:40)
DX: C18.2 Malignant neoplasm of ascending colon (principal); I50.31 Acute diastolic (congestive) heart failure; E87.1 Hypo-osmolality and hyponatremia; I31.39 Other pericardial effusion (noninflammatory); K56.609 Unspecified intestinal obstruction, unspecified as to partial versus complete obstruction; K56.7 Ileus, unspecified; E88.09 Other disorders of plasma-protein metabolism, not elsewhere classified; I11.0 Hypertensive heart disease with heart failure; I95.9 Hypotension, unspecified; N30.90 Cystitis, unspecified without hematuria; F10.20 Alcohol dependence, uncomplicated; Z28.310 Unvaccinated for COVID-19; D50.9 Iron deficiency anemia, unspecified; R73.9 Hyperglycemia, unspecified; D75.839 Thrombocytosis, unspecified; E87.5 Hyperkalemia; F17.210 Nicotine dependence, cigarettes, uncomplicated; Z71.6 Tobacco abuse counseling
CPT/HCPCS: 36415; 64488; 71045; 71046; 71260; 74177; 76705; 80048; 80053; 81003; 82330; 82378; 82525; 82607; 82728; 82747; 83540; 83550; 83735; 83880; 83930; 83935; 84100; 84478; 84484; 85025; 85027; 85045; 85610; 85730; 86850; 86900; 86901; 86920; 88309; 93005; 93306; 94760; 96372; 96374; 96376; 99285

== ENCOUNTER → 2023-08-10 | Outpatient (CLI) | payer OTHER ==
[2023-08-10 13:31] LABS: African American GFR (CKD) >90 (>60 ml/min/1.73 sqM); Blood Urea Nitrogen 27 mg/dL (9-20); Non-African American GFR(CKD) >90 (>60 ml/min/1.73 sqM)
--- NOTE | 2023-08-10 14:10 | CT ---
EXAMINATION: CT CHEST, ABDOMEN AND PELVIS WITH IV CONTRAST DATE OF EXAMINATION: 08/10/2023. COMPARISON: 11/28/2022.. INDICATION: Colon cancer. PROCEDURE: Axial CT of the chest, abdomen and pelvis was performed following the intravenous adminis tration of 100 ml Isovue 300. Coronal and sagittal reformats were performed. CT dose lowering techni ques were used, to include: automated exposure control, adjustment for patient size, and/or use of it erative reconstruction. FINDINGS: CHEST: Mediastinum and Cristina: There is no axillary, mediastinal or hilar lymphadenopathy. Pleural and Pericardial spaces: There are no pleural or pericardial effusions. Cardiovascular: The thoracic aorta is normal in size without evidence of aneurysm or dissection. Ther e are moderate patchy coronary artery calcifications. Pulmonary Artery: There are no central pulmonary arterial filling defects. Lung Parenchyma and Airways: The lungs are clear. ABDOMEN: Liver and Biliary system: Normal. Adrenal glands: Normal. Kidneys and ureters: Normal. Spleen: Normal. Pancreas: Normal. Gallbladder: Normal. Lymph nodes, Peritoneum and mesentery: There is no mesenteric or retroperitoneal lymphadenopathy. Gastrointestinal tract: There are no dilated loops of bowel or free intraperitoneal air. . Represen t a prior right colectomy. No residual or recurrent disease is identified. Aorta/IVC: There is mild vascular calcification and plaque seen throughout the abdominal aorta with out evidence of aneurysmal dilation or dissection.. IVC normal. Abdominal wall: Normal. PELVIS: Fluid: There is no free fluid in the pelvis. Lymph Nodes: There is no pelvic or inguinal lymphadenopathy.. Urinary bladder: Normal. BONES: Prior healed left clavicle fracture is partially included. Scattered degenerative changes are seen throughout the spine. There is mild to moderate degenerative joint space narrowing on the right . There are no acute osseous abnormalities. ADDITIONAL SIGNIFICANT FINDINGS: None. IMPRESSION: No acute process in no definitive evidence of metastatic disease within the chest, abdomen or pelvis.
== END | disposition home or self-care (01) ==
LOC: RADCTMAIN 11:51
PROVIDERS: ATTEND Internal Medicine
DX: C18.2 Malignant neoplasm of ascending colon (principal); R10.9 Unspecified abdominal pain
CPT/HCPCS: 82565; 84520; 71260; 74177; 36415; Q9967

== ENCOUNTER → 2023-09-05 | Outpatient (CLI) | payer OTHER ==
--- NOTE | 2023-09-05 14:20 | XR ---
EXAMINATION TYPE: XR shoulder limited RT DATE OF EXAM: 09/05/2023 COMPARISON: None HISTORY: Pain TECHNIQUE: Two-view right shoulder FINDINGS: Head articulates with the glenoid. Degenerative changes are at the acromioclavicular juncti on. Acromial humeral joint space is preserved. No acute fractures are evident. IMPRESSION: 1. No acute osseous abnormality two-view right shoulder
== END | disposition home or self-care (01) ==
LOC: RADXRMAIN 13:35
PROVIDERS: ATTEND Family Medicine
DX: M25.511 Pain in right shoulder (principal)

== ENCOUNTER 2023-12-19 10:29 | Day surgery (SDC) | payer OTHER ==
[2023-12-19] MEDS: IV FLUID CONTINUATION 1,000 ML IV ONE (12:06)
[2023-12-19 12:37] VITALS: TEMP 97.8
[2023-12-19] MEDS ORDERED: PROPOFOL 10 MG/ML 20 ML VIAL IV ONE (12:55)
[2023-12-19] MEDS ORDERED: LIDOCAINE 1% INJ 10MG/ML (20 ML MDV) ONE (12:55)
[2023-12-19] MEDS ORDERED: GLYCOPYRROLATE 0.2 MG/ML 2 ML VIAL ONE (12:55)
--- NOTE | 2023-12-19 13:13 | P.PCN ---
Date of Procedure: 12/19/23 Procedure(s) Performed: BRIEF HISTORY: Patient is a 63-year-old pleasant white male scheduled for an elective colonoscopy as a part of surveillance of prior history of colon cancer diagnosed a year ago. Patient is s/p right hemicolectomy. PROCEDURE PERFORMED: Colonoscopy. PREOPERATIVE DIAGNOSIS: History of colon cancer diagnosed 1 year ago. IV sedation per Anesthesia. PROCEDURE: After informed consent was obtained, the patient, was brought into the endoscopy unit. IV sedation was administered by Anesthesia under continuous monitoring. Digital rectal examination was normal. Initially the Olympus CF-160 flexible video colonoscope was then inserted in the rectum, gradually advanced into the colon without any difficulty. Careful examination was performed as the scope was gradually being withdrawn. Ileocolic anastomosis appeared normal. Mucosa of transverse colon, descending colon, sigmoid colon, and rectum appeared normal. Retroflexion was performed in the rectum and no lesions were seen. The patient tolerated the procedure well. IMPRESSION: Normal-appearing colon from rectum to right colon with normal ileocolic anastomosis RECOMMENDATIONS: Findings of this examination were discussed with the patient as well as his family. He was advised to have repeat surveillance colonoscopy in 2 years because of the prior history of colon cancer.
[2023-12-19] MEDS ORDERED: LACTATED RINGERS 1,000 ML IV SCH (13:22)
[2023-12-19] MEDS ORDERED: LIDOCAINE 1% (10MG/ML) FOR IV START INTRADERMA PRN (13:22)
[2023-12-19 13:44] VITALS: BP 122/76; PULSE 64; RESP 96
== END 2023-12-19 13:52 | disposition home or self-care (01) ==
LOC: ORWHC2ENDO 10:29
PROVIDERS: ATTEND Internal Medicine Gastroenterology
DX: Z12.11 Encounter for screening for malignant neoplasm of colon (principal); F17.200 Nicotine dependence, unspecified, uncomplicated; Z85.038 Personal history of other malignant neoplasm of large intestine; Z98.0 Intestinal bypass and anastomosis status
CPT/HCPCS: 45378; J2001; J2704; J1596